=== PATIENT | female | born 1955 | race Caucasian/White ===

== ENCOUNTER → 2020-03-23 12:42 | Outpatient (REF) | payer MEDICARE, BC, SELFPAY ==
--- NOTE | 2020-03-23 13:00 | CA_ITS ---
Transthoracic Echocardiogram Patient (Last, First, Middle): Sonia Mora F Gender: Female Date of : 1955 Age: 64 Procedure Date: 03/23/2020 Procedure Type: Transthoracic Echocardiogram Location: OP Height: 167.64 cm Weight: 131.54 kg BSA: 2.34 m2 Heart Rate: bpm BP: 138 / 80 mmHg Bill Checker: Referring MD: Kumar Honeycutt MD Symptoms: Z95.4 AVR, Z95.1 CABG X3 Study Quality: Fair ECG Rhythm: Sinus Conclusions: - The left ventricular systolic function is normal. The visually estimated ejection fraction is between 55-60%. - A bioprosthetic aortic valve is present. The prosthetic aortic valve appears to be functioning normally. Findings Left Ventricle Normal left ventricular cavity size. There is mildly increased left ventricular wall thickness. The left ventricular systolic function is normal. The visually estimated ejection fraction is between 55-60%. Diastolic function is normal for age. Wall motion assessment is suboptimal but grossly no obvious abnormality noted. Right Ventricle Normal right ventricular cavity size and systolic function. Atria The left atrium is normal in size. The right atrium is normal in size. Aortic Valve A bioprosthetic aortic valve is present. The prosthetic aortic valve appears to be functioning normally. The aortic valve was not well visualized. The peak aortic velocity is 2.98 m/s with a calculated peak gradient of 36 mmHg. The mean gradient is 17 mmHg. The aortic valve area is 1.64 cm2. Stroke volume is elevated that could play a role in elevated gradients. Mitral Valve The mitral valve appears normal. There is mild mitral valve regurgitation. There is no mitral valve stenosis. Pulmonic Valve The pulmonic valve was not well visualized. Tricuspid Valve Normal tricuspid valve structure. There is trace tricuspid valve regurgitation. The pulmonary artery systolic pressure is normal. Great Vessels The aortic annulus, sinuses of valsalva, and asc aorta are normal in size. Venous The inferior vena cava is normal in size and collapses greater than 50% with inspiration. Pericardium/Pleural There is no evidence of pericardial effusion. Prior Study Comparison No significant change compared to prior study dated: 02/10/2019. Measurements 2D Linear Measurements IVSd: 1.35 0.6-0.9/0.6-1.0 cm LVIDd: 4.63 3.9-5.3/4.2-5.9 cm LVIDd Index: 1.98 2.4-3.2/2.2-3.1 cm/m2 LVIDs: 3.06 2.0-3.6 cm LVPWd: 1.35 0.7-1.1 cm Ao Root: 2.30 2.1-3.5 cm LA Diam: 4.00 2.7-3.8/3.0-4.0 cm LAIDs Index: 1.71 1.5-2.3 cm/m2 LV Mass: 306.36 67-162/88-224 g LV Mass Index: 130.92 43-95/49-115 g/m2 LVOT Diam: 2.10 3.0+(-)1.3 cm 2D Systolic Function EF 4C: 49.40 >55% EF 2C: 35.00 >55% Mitral Valve MV Pk E: 0.90 MV PK A: 1.28 MV Decel Time: 225.00 E/A: 0.70 E'Lateral: 11.90 E'Medial: 8.61 E/E' Med: 10.40 E/E' Lat: 7.50 PHT: 66.00 MVA PHT: 3.33 Decel [place]: 3.98 Aortic Valve AoV Pk Massimo: 2.98 AoV Mn Massimo: 1.89 AoV VTI: 0.73 AoV Pk Grad: 36.00 Aov Mn Grad: 17.00 KENDELL Cont.VTI: 1.64 LVOT LVOT Pk Massimo: 1.24 LVOT Mn Massimo: 0.96 LVOT VTI: 0.35 LVOT Pk Grad: 6.00 LVOT Mn Grad: 4.00 LVOT Diam: 2.10 LVOT Area: 3.46 Diastolic Function MV Pk E: 0.90 MV Pk A: 1.28 E/A: 0.70 E'Medial: 8.61 E/E' Med: 10.40 E' Laterial: 11.90 E/E' Lat: 7.50 Tricuspid Valve TR Pk Massimo: 1.94 TR Pk Grad: 15.00 RA Press: 3.00 RVSP: 15.00 Great Vessels Aorta Ao Root-2D: 2.30 2.0-3.7 cm Ao Asc: 2.90 2.1-3.4 cm Pulmonary Valve PV Pk Massimo: 1.00 Peak PV Grad: 4.00 Updated in Other Vendor System with Status of Final Kumar Honeycutt MD electronically signed on 03/26/2020 12:39:48 PM with status of Final
== END ==
LOC: HO.CARD 12:42
PROVIDERS: PCP Internal Medicine; Visit Provider Internal Medicine
DX: Z95.1 Presence of aortocoronary bypass graft (principal); Z95.4 Presence of other heart-valve replacement
CPT/HCPCS: 93306

== ENCOUNTER → 2020-04-13 12:46 | Outpatient (BNVA) | payer MEDICARE, BC, SELFPAY | PROVIDERS: PCP Internal Medicine; Referring Provider Internal Medicine; Visit Provider Internal Medicine | DX: Z13.89 Encounter for screening for other disorder (principal) | CPT/HCPCS: Q3014 ==

== ENCOUNTER 2021-03-22 07:37 | Outpatient (REF) | payer MEDICARE, BC, SELFPAY ==
[2021-03-22 08:40] LABS: Basophils Absolute Auto 0.1 X10*3/uL (0.0-0.2); Basophils Percent Auto 0.4 % (0-2); Eosinophils Absolute Auto 0.3 X10*3/uL (0.0-0.4); Eosinophils Percent Auto 2.6 % (0-4); Hematocrit 46.1 % (37.0-47.0); Hemoglobin 14.6 g/dl (12.0-16.0); Imm Gran Abs Auto 0.03 X10*3/uL (0.00-0.03); Imm Gran Pct Auto 0.2 % (0.0-0.4); Lymphocytes Absolute Auto 5.3 X10*3/uL (1.2-4.9); Lymphocytes Percent Auto 44.1 % (20-40); MANUAL DIFF FLAG SCAN; Mean Corpuscular HGB Conc 31.7 g/dl (31.0-35.0); Mean Corpuscular Hemoglobin 28.9 pg (27.0-33.0); Mean Corpuscular Volume 91.1 fL (80.0-98.0); Mean Platelet Volume 11.3 fL (9.4-12.3); Neutrophils Absolute Auto 5.4 x10*3/uL (2.0-8.3); Neutrophils Percent Auto 44.7 % (45-73); Platelet Count 198 X10*3/uL (160-400); Red Blood Count 5.06 X10*6/uL (4.20-5.50); Red Cell Distribution Width 13.8 % (11.0-16.0); SCAN SMEAR FLAG 1
[2021-03-22 09:08] LABS: Alanine Aminotransferase 22 U/L (0-31); Alkaline Phosphatase 152 U/L (39-117); Anion Gap 10 (12-20); Aspartate Amino Transferase 14 U/L (5-31); Bilirubin Total 0.3 mg/dL (0.0-1.0); Blood Urea Nitrogen 13 mg/dL (9-16); Calcium 8.9 mg/dL (8.4-10.2); Carbon Dioxide 29 mmol/L (22-29); Chloride 104 mmol/L (96-108); Cholesterol 201 mg/dL; Estimated Glomerular Filt Rate > 60; Glucose Fasting 123 mg/dL (60-99); HDL Cholesterol 58 mg/dL; LDL Cholesterol Calculated 114 mg/dl; Potassium 4.4 mmol/L (3.3-5.1); Sodium 139 mmol/L (135-145); Total Protein 7.1 g/dL (6.5-8.0); Triglycerides 146 mg/dL
[2021-03-22 10:10] LABS: SLIDE REVIEW VERIFIED
[2021-03-24 23:41] LABS: Phenytoin, Free/Unbound 0.9 mg/L (1.0-2.0)
[2021-03-28 12:16] LABS: Vitamin D 25-OH, D2 <4 ng/mL; Vitamin D 25-OH, D3 7 ng/mL; Vitamin D 25-OH, Total 7 ng/mL (30-100)
== END 2021-03-22 07:38 | disposition home or self-care (01) ==
LOC: HO.LAB 07:37
PROVIDERS: PCP Internal Medicine; Visit Provider Internal Medicine
DX: R56.9 Unspecified convulsions (principal); E55.9 Vitamin D deficiency, unspecified; D64.9 Anemia, unspecified; E78.5 Hyperlipidemia, unspecified; I48.0 Paroxysmal atrial fibrillation
CPT/HCPCS: 36415; 80053; 80061; 80186; 82306; 85025

== ENCOUNTER → 2021-05-02 12:44 | Outpatient (REF) | payer MEDICARE, BC, SELFPAY ==
--- NOTE | 2021-05-02 12:47 | CA_ITS ---
Transthoracic Echocardiogram Patient (Last, First, Middle): Sonia Mora F Gender: Female Date of : 1955 Age: 65 Procedure Date: 05/02/2021 Procedure Type: Transthoracic Echocardiogram Location: OP Height: 167.64 cm Weight: 136.08 kg BSA: 2.38 m2 Heart Rate: bpm BP: 134 / 85 mmHg Drawing Box Tender: ELENA Referring MD: Kumar Honeycutt MD Pododermatologist: Jonathan Trejo MD Symptoms: Z95.3 - Presence of xenogenic heart valve Study Quality: Technically Difficult ECG Rhythm: Sinus Conclusions: - 1. Normal LV systolic function with LVEF of 55-60% with impaired relaxation with suggestion of increased LVEDP 2. Bioprosthetic aortic valve function is stable with mean gradient of 19 mm of Hg 3. Normal RVSP 4. No pericardial effusion Findings Left Ventricle Normal left ventricular size, thickness, and systolic function. The visually estimated ejection fraction is between 55-60%. Spectral Doppler is indicative of an impaired relaxation filling pattern. Elevated left ventricular end diastolic pressure. E/E prime ratio is between 8 and 15 consistent with indeterminate filling pressures. Wall Motion Rest Echo Findings The basal inferior and mid inferoseptal segments are hypokinetic. The basal inferoseptal segment is akinetic. All other scored wall segments showed normal motion. Right Ventricle Normal right ventricular cavity size and systolic function. Atria The left atrium is normal in size. Interatrial shunt cannot be excluded. The right atrium was not well visualized. Aortic Valve A bioprosthetic aortic valve is present. The peak aortic gradient is 36 mmHg.The mean gradient is 19 mmHg. There is no aortic valve regurgitation. The valve is well seated with no abnormal rocking motion. Mean gradient across the valve is about 19 mm of Hg which has not changed significantly. Calculated EOA is about 1.4 cm2. Mitral Valve There is mild anterior and moderate posterior mitral leaflet thickening. The posterior mitral leaflet has restricted mobility. There is trace mitral valve regurgitation. There is no mitral valve stenosis. Pulmonic Valve The pulmonic valve was not well visualized. Tricuspid Valve Likely normal tricuspid valve structure and function. There is trace tricuspid valve regurgitation. The right ventricular systolic pressure is normal. There is no evidence of pulmonary hypertension. Great Vessels All visible segments of the aorta are normal in size. The pulmonary artery was not well visualized. Venous The inferior vena cava is normal in size and collapses greater than 50% with inspiration. Pericardium/Pleural There is no evidence of pericardial effusion. Prior Study Comparison No significant change compared to prior study dated: 03/23/2020. Measurements 2D Linear Measurements IVSd: 1.02 0.6-0.9/0.6-1.0 cm LVIDd: 5.48 3.9-5.3/4.2-5.9 cm LVIDd Index: 2.30 2.4-3.2/2.2-3.1 cm/m2 LVIDs: 4.39 2.0-3.6 cm LVPWd: 1.03 0.7-1.1 cm Ao Root: 3.50 2.1-3.5 cm LA Diam: 4.40 2.7-3.8/3.0-4.0 cm LAIDs Index: 1.85 1.5-2.3 cm/m2 LV Mass: 272.89 67-162/88-224 g LV Mass Index: 114.66 43-95/49-115 g/m2 LVOT Diam: 2.10 3.0+(-)1.3 cm 2D Systolic Function EF 4C: 54.50 >55% EF 2C: 57.50 >55% EF BiP: 55.90 >55% Mitral Valve MV Pk E: 1.03 MV PK A: 1.33 MV Decel Time: 262.00 E/A: 0.80 E'Lateral: 11.50 E'Medial: 5.87 E/E' Med: 17.50 E/E' Lat: 9.00 PHT: 77.00 MVA PHT: 2.86 Decel [place]: 3.92 Aortic Valve AoV Pk Massimo: 3.00 AoV Mn Massimo: 2.05 AoV VTI: 0.71 AoV Pk Grad: 36.00 Aov Mn Grad: 19.00 KENDELL Cont.VTI: 1.53 LVOT LVOT Pk Massimo: 1.14 LVOT Mn Massimo: 0.89 LVOT VTI: 0.32 LVOT Pk Grad: 5.00 LVOT Mn Grad: 3.00 LVOT Diam: 2.10 LVOT Area: 3.46 Diastolic Function MV Pk E: 1.03 MV Pk A: 1.33 E/A: 0.80 E'Medial: 5.87 E/E' Med: 17.50 E' Laterial: 11.50 E/E' Lat: 9.00 Right Ventricle TAPSE (mm): 19.80 TVS' Massimo: 10.40 Tricuspid Valve TR Pk Massimo: 1.25 TR Pk Grad: 6.00 RA Press: 3.00 RVSP: 9.00 Great Vessels Aorta Ao Root-2D: 3.50 2.0-3.7 cm Updated in Other Vendor System with Status of Final Jonathan Trejo MD electronically signed on 05/02/2021 2:59:00 PM with status of Final
== END ==
LOC: HO.CARD 12:44
PROVIDERS: Visit Provider Internal Medicine
DX: I25.10 Atherosclerotic heart disease of native coronary artery without angina pectoris (principal); Z95.3 Presence of xenogenic heart valve
CPT/HCPCS: 93306

== ENCOUNTER → 2021-05-09 12:30 | Outpatient (BNVA) | payer MEDICARE, BC, SELFPAY | PROVIDERS: PCP Internal Medicine; Referring Provider Internal Medicine; Visit Provider Internal Medicine | DX: U07.1 COVID-19 (principal); I25.10 Atherosclerotic heart disease of native coronary artery without angina pectoris; I48.0 Paroxysmal atrial fibrillation; E78.5 Hyperlipidemia, unspecified; Z95.3 Presence of xenogenic heart valve | CPT/HCPCS: Q3014 ==

== ENCOUNTER 2021-12-27 12:00 | Emergency (ER) | payer MEDICARE, BC, SELFPAY ==
--- NOTE | ~2021-12-27 | XR_ITS ---
EXAMINATION: XR HIP, RIGHT CLINICAL INFORMATION: Pain. COMPARISON: None TECHNIQUE: Two views of the right hip. FINDINGS: Degenerative changes of the incidentally visualized lower lumbar spine. Bones and soft tissues otherwise appear unremarkable. No fracture appreciated. Alignment is anatomic. Hip joint space is maintained. Calcification of the visualized lower extremity arteries. XR/XR hip RT w PEL1V IMPRESSION: No acute finding.
[2021-12-27 12:07] VITALS: BP 133/110; PULSE 80; RESP 18; TEMP 36.4; O2SAT 98; BMI 48.4
[2021-12-27 12:36] LABS: Appearance Urine Cloudy; Color Urine Dark Yellow; Glucose Urine UA Negative (Negative); Leukocyte Esterase Urine Trace (Negative); Nitrite Urine Negative (Negative); PH 5.5 (5.0-8.0); Specific Gravity - Urine >= 1.030 (1.005-1.025); Urine Blood Negative (Negative); Urine Ketones Trace mg/dL (Negative); Urine Protein 30 (1+) mg/dL (Neg-Trace)
[2021-12-27 13:29] LABS: Bacteria Urine 1+ (None Seen); WBC Urine 0-5 /HPF (0-5)
--- NOTE | 2021-12-27 13:43 | ED.LOWEXIN ---
HPI - Extremity Injury (Lower) General Chief Complaint: Extremity Injury, Lower Stated Complaint: r hip and groin pain Time Seen by Provider: 12/27/21 13:43 Source: patient and family () Mode of arrival: ambulatory Limitations: no limitations History of Present Illness HPI Narrative: 66-year-old female came in for evaluation of right hip pain. Patient been having right hip pain for the past year, woke up this morning with worsening of the right hip pain, patient took 2 Tylenol this morning with no good relief of the symptoms, patient declined any fall, no injury to the right hip. Related Data Home Medications Medication Instructions Recorded Confirmed aspirin 81 mg tablet,delayed 81 mg PO DAILY 02/11/20 05/09/21 release (Adult Low Dose Aspirin) furosemide 40 mg tablet 40 mg PO .COMPLEX 02/11/20 05/09/21 Previous Rx's Medication Instructions Recorded docusate sodium 100 mg capsule 100 mg PO BID #60 caps 11/07/20 ezetimibe 10 mg tablet 10 mg PO DAILY 90 days #90 tabs 02/03/21 ergocalciferol (vitamin D2) 1,250 1,250 mcg PO QWEEK 90 days #13 caps 04/06/21 mcg (50,000 unit) capsule metoprolol tartrate 50 mg tablet 50 mg PO BID #180 tabs 10/05/21 phenytoin sodium extended 100 mg 400 mg PO DAILY 90 days #360 caps 10/05/21 capsule folic acid 1 mg tablet 1 mg PO DAILY #90 tabs 10/26/21 niacin 500 mg tablet,extended 500 mg PO DAILY #90 tabs 10/26/21 release 24 hr rosuvastatin 40 mg tablet 40 mg PO DAILY #90 tabs 10/26/21 nitrofurantoin 100 mg PO BID #14 caps 12/27/21 monohydrate/macrocrystals 100 mg capsule (Macrobid) Allergies Allergy/AdvReac Type Severity Reaction Status Date / Time No Known Allergies Allergy Verified 05/09/21 12:32 Review of Systems Review of Systems: All other systems are reviewed and are negative Constitutional: Reports as per HPI and Reports no additional constitutional complaints Eyes: Reports as per HPI and Reports no additional eye complaints Reports system reviewed and no additional complaints, except as documented Cardiovascular: Reports as per HPI and Reports no additional cardiovascular complaints Respiratory: Reports as per HPI and Reports no additional respiratory complaints Gastrointestinal: Reports as per HPI and Reports no additional gastrointestinal complaints Genitourinary: Reports no additional female genitourinary complaints Musculoskeletal: Reports no additional musculoskeletal complaints Skin/Breast: Reports system reviewed and no additional complaints, except as docu Psychiatric: Reports no additional psychiatric complaints Endocrine: Reports no additional endocrine complaints Hematologic/Lymphatic: Reports no additional hematologic/lymphatic complaints Allergic/Immunologic: Reports no additional allergic/immunologic complaints Reports system reviewed and no additional complaints, except as documented and Reports Abnormal speech present [facility] Past Medical History Medical History Atherosclerotic cardiovascular disease Cellulitis Constipation by delayed colonic transit Essential hypertension History of stroke Impaired glucose tolerance Other and unspecified hyperlipidemia PAF (paroxysmal atrial fibrillation) Pure hypercholesterolemia Seizure Surgical History History of partial hysterectomy S/P AVR (aortic valve replacement) Status post aortic valve replacement with bioprosthetic valve Status post coronary artery bypass graft Family History Family History Father Cancer Mother CVD (cardiovascular disease) Paternal Aunt Hypertension Paternal Uncle Hypertension Social History Social History Housing: House Alcohol intake: never Patient Tobacco Use Status: Former Tobacco user e-Cigarette/Vaping Use: Never Used Second Hand Smoke Exposure: No Advance Directives: No Advance Directives Information Provided: No service: No Current occupational status: unemployed Physical Exam Vital Signs: Vital Signs: Last Vital Signs Temp 97.6 F 12/27/21 12:07 Pulse 80 12/27/21 12:07 Resp 18 12/27/21 12:07 BP 133/110 H 12/27/21 12:07 Pulse Ox 98 12/27/21 12:07 O2 Del Method 12/27/21 12:07 BMI result Body Mass Index 48.4 Vital signs have been reviewed as appeared to be correct. Elevated diastolic blood pressure.. Heart rate normal. Respiration rate normal. Temperature normal. Oxygen saturation normal. Appearance: Alert. Oriented X3. No acute distress. Head: Normal external exam. Normocephalic. Atraumatic. No Reagan signs noted. No raccoon eyes noted Eyes: PERRLA. EOMI. Conjunctiva and sclera normal. Eyelids normal. ENT: TM's Normal. Pharynx normal. Uvula midline. Moist mucous membranes. No trismus noted. No drooling noted. No muffled voice noted. Neck: Normal inspection. Neck supple. FROM. No adenopathy. Thyroid Normal. No meningeal signs. No neck mass noted. CVS: Normal heart rate and rhythm. Heart sound normal. No murmurs noted. Pulses normal throughout. Respiratory: No respiratory distress. Painless inspiration. Breath sounds normal. No wheezes/rales/rhonchi noted. Chest nontender. No accessory muscle usage noted or decreased air movement noted. Abdomen: Soft and nontender. Bowel sounds normal in all 4 quadrants. No distention noted. No organomegaly noted. No visible injury noted. Back: No CVA tenderness. Full range of motion noted. Skin: Skin warm and dry. Normal skin color. Normal skin turgor. No rashes/lesions/lacerations noted. Extremities: Patient normally walk with cane, able to walk and ambulate with some tenderness in the right hip. No rash, for range of motion of the right hip, neurovascularly intact to the right lower extremities. Neuro: Oriented X 3. Cranial nerve exam: II-XII are grossly intact No motor deficit. No sensory deficit. Reflexes normal. Course Course Course Narrative: 66-year-old female right hip pain likely due to chronic arthritis. No acute injury or trauma. Will refer the patient to orthopedic for further evaluation of chronic management of chronic arthritis. Mild hematuria in the urine, will discharge the patient to follow-up with PCP and Dr. Padron clinical presentation is not likely to be kidney stone. However more history from the patient patient been having dysuria and increased urinary frequency and itching. Will treat with Macrobid patient was instructed to drink plenty of fluids. MDM - Extremity Injury (Lower) Lab Data Attestation: I reviewed the patient's lab results. Labs: Lab Results 12/27/21 Range/Units 12:22 Urine Color Dark Yellow Urine Appearance Cloudy Urine pH 5.5 (5.0-8.0) Ur Specific [place] >= 1.030 H (1.005-1.025) Urine Protein 30 (1+) H (Neg-Trace) mg/dL Urine Glucose (UA) Negative (Negative) mg/dL Urine Ketones Trace (Negative) mg/dL Urine Blood Negative (Negative) Urine Nitrite Negative (Negative) Ur Leukocyte Esterase Trace H (Negative) Urine RBC 11-20 H (0-2) /HPF Urine WBC 0-5 (0-5) /HPF Ur Squamous Epith Cells 6-10 (0-2) /HPF Urine Bacteria 1+ (None Seen) Hyaline Casts 3-5 (0-2) /LPF Imaging Data Right hip x-ray: Attestation: I personally reviewed and interpreted this imaging study as follows: Radiologist's impression: No acute finding of the right hip. Discharge Plan Discharge Clinical Impression: Arthritis of right hip, Acute UTI Patient Disposition: Home, Self-Care Instructions: Urinary Tract Infection in Women (ED), Osteoarthritis (ED) Prescriptions: New nitrofurantoin monohyd/m-cryst [Macrobid] 100 mg capsule 100 mg PO BID Qty: 14 0RF Rx Instructions: must administer with a meal/food No Action docusate sodium 100 mg capsule 100 mg PO BID Qty: 60 6RF ezetimibe 10 mg tablet 10 mg PO DAILY 90 Days Qty: 90 3RF phenytoin sodium extended 100 mg capsule 400 mg PO DAILY 90 Days Qty: 360 3RF metoprolol tartrate 50 mg tablet 50 mg PO BID Qty: 180 3RF rosuvastatin 40 mg tablet 40 mg PO DAILY Qty: 90 2RF folic acid 1 mg tablet 1 mg PO DAILY Qty: 90 1RF niacin 500 mg tablet extended release 24 hr 500 mg PO DAILY Qty: 90 1RF furosemide 40 mg tablet 40 mg PO .COMPLEX Rx Instructions: 40 mg PO once a week; aspirin [Adult Low Dose Aspirin] 81 mg tablet,delayed release (DR/EC) 81 mg PO DAILY ergocalciferol (vitamin D2) 1,250 mcg (50,000 unit) capsule 1,250 mcg PO QWEEK 90 Days Qty: 13 2RF Referrals: Yin Nagel MD [Primary Care Provider] -
== END 2021-12-27 14:24 | disposition home or self-care (01) ==
PROVIDERS: Emergency Provider Emergency Medicine; PCP Internal Medicine
DX: M25.551 Pain in right hip (principal); Z79.899 Other long term (current) drug therapy; Z87.891 Personal history of nicotine dependence
CPT/HCPCS: 73502; 81001; 99282; 99283

== ENCOUNTER → 2022-01-11 13:13 | Outpatient (BNVA) | payer MEDICARE, BC, SELFPAY | PROVIDERS: PCP Internal Medicine; Referring Provider Internal Medicine; Visit Provider Internal Medicine | DX: I25.10 Atherosclerotic heart disease of native coronary artery without angina pectoris (principal); I10 Essential (primary) hypertension; E78.5 Hyperlipidemia, unspecified; Z95.3 Presence of xenogenic heart valve; Z79.82 Long term (current) use of aspirin; Z79.899 Other long term (current) drug therapy | CPT/HCPCS: 93005; 99212 ==

== ENCOUNTER 2022-01-30 08:30 | Outpatient (REF) | payer MEDICARE, BC, SELFPAY ==
[2022-01-30 08:48] LABS: Basophils Percent Auto 0.4 % (0-2); Eosinophils Absolute Auto 0.3 X10*3/uL (0.0-0.4); Eosinophils Percent Auto 3.2 % (0-4); Hematocrit 47.6 % (37.0-47.0); Hemoglobin 14.9 g/dl (12.0-16.0); Imm Gran Abs Auto 0.02 X10*3/uL (0.00-0.03); Imm Gran Pct Auto 0.2 % (0.0-0.4); Lymphocytes Absolute Auto 5.3 X10*3/uL (1.2-4.9); Lymphocytes Percent Auto 50.2 % (20-40); MANUAL DIFF FLAG SCAN; Mean Corpuscular HGB Conc 31.3 g/dl (31.0-35.0); Mean Corpuscular Hemoglobin 28.8 pg (27.0-33.0); Mean Corpuscular Volume 92.1 fL (80.0-98.0); Mean Platelet Volume 10.9 fL (9.4-12.3); Monocytes Percent Auto 9.1 % (2-11); Neutrophils Absolute Auto 3.9 x10*3/uL (2.0-8.3); Neutrophils Percent Auto 36.9 % (45-73); Platelet Count 190 X10*3/uL (160-400); Red Blood Count 5.17 X10*6/uL (4.20-5.50); Red Cell Distribution Width 14.1 % (11.0-16.0); SCAN SMEAR FLAG 1; White Blood Count 10.5 X10*3/uL (4.8-10.8)
[2022-01-30 09:06] LABS: SLIDE REVIEW VERIFIED
[2022-01-30 10:37] LABS: Phenytoin Dilantin 8.8 ug/mL (10.0-20.0)
[2022-01-30 10:46] LABS: Alanine Aminotransferase 18 U/L (0-31); Alkaline Phosphatase 135 U/L (39-117); Anion Gap 16 (12-20); Aspartate Amino Transferase 16 U/L (5-31); Bilirubin Total 0.3 mg/dL (0.0-1.0); Blood Urea Nitrogen 18 mg/dL (9-16); Carbon Dioxide 26 mmol/L (22-29); Chloride 105 mmol/L (96-108); Cholesterol 208 mg/dL; Estimated Glomerular Filt Rate > 60; Glucose Fasting 122 mg/dL (60-99); HDL Cholesterol 63 mg/dL; LDL Cholesterol Calculated 117 mg/dl; Potassium 4.1 mmol/L (3.3-5.1); Sodium 143 mmol/L (135-145); Total Protein 7.3 g/dL (6.5-8.0); Triglycerides 144 mg/dL
[2022-02-03 14:31] LABS: Vitamin D 25-OH, D2 13 ng/mL; Vitamin D 25-OH, D3 10 ng/mL; Vitamin D 25-OH, Total 23 ng/mL (30-100)
== END 2022-01-30 08:31 | disposition home or self-care (01) ==
LOC: HO.LAB 08:30
PROVIDERS: PCP Internal Medicine; Visit Provider Internal Medicine
DX: I48.0 Paroxysmal atrial fibrillation (principal); E55.9 Vitamin D deficiency, unspecified; D64.9 Anemia, unspecified; R56.9 Unspecified convulsions; E78.5 Hyperlipidemia, unspecified
CPT/HCPCS: 36415; 80053; 80061; 80185; 82306; 85025

== ENCOUNTER → 2023-11-01 10:05 | Outpatient (REF) | payer MEDICARE, BC, SELFPAY ==
--- NOTE | 2023-11-01 10:20 | CA_ITS ---
Transthoracic Echocardiogram Amended Patient (Last, First, Middle): Sonia Mora F Gender: Female Date of : 1955 Age: 68 Procedure Date: 11/01/2023 Procedure Type: Transthoracic Echocardiogram Location: OP Height: 167. cm Weight: 136.08 kg BSA: 2.37 m2 Heart Rate: bpm BP: 142 / 90 mmHg Theatre Arts Professor: DIEGO Heller MD: Kumar Honeycutt MD [employer] Drill Operator: Jonathan Trejo MD Symptoms: Z95.3 - Presence of xenogenic heart valve Study Quality: Adequate ECG Rhythm: Sinus Conclusions: - 1. Normal LV systolic function with LVEF of 60 65% with mild LVH with impaired relaxation filling pattern 2. Bioprosthetic aortic valve in place with increased gradient at 15 mmHg although gradients are stable 3. Normal RV systolic pressure 4. Mildly dilated ascending aorta at 3.7 cm 5. No gross pericardial effusion Findings Left Ventricle Normal left ventricular size and systolic function. There is mildly increased left ventricular wall thickness. The visually estimated ejection fraction is between 60-65%. Spectral Doppler is indicative of an impaired relaxation filling pattern. E/E prime ratio is between 8 and 15 consistent with indeterminate filling pressures. Right Ventricle Normal right ventricular cavity size and systolic function. Atria The left atrium is likely dilated. Interatrial shunt cannot be excluded. The right atrium is normal in size. Aortic Valve A bioprosthetic aortic valve is present. The mean gradient is 15 mmHg. There is no aortic valve regurgitation. Increased gradient across the bioprosthetic valve at 15 mmHg but I stable compared to prior study, could represent patient prosthesis mismatch. the valve is well seated without abnormal rocking motion Mitral Valve There is mild anterior and moderate posterior mitral leaflet thickening. The posterior mitral leaflet has restricted mobility. There is trace mitral valve regurgitation. There is no mitral valve stenosis. Pulmonic Valve The pulmonic valve was not well visualized. Tricuspid Valve Likely normal tricuspid valve structure and function. There is mild tricuspid valve regurgitation. The right ventricular systolic pressure is normal. The right ventricular systolic pressure is 29 mmHg. Normal right atrial pressure. There is no evidence of pulmonary hypertension. Great Vessels The aorta was not well visualized. The pulmonary artery was not well visualized. There is mild dilatation of the ascending aorta measuring 3.70 cm. Venous The inferior vena cava is normal in size and collapses greater than 50% with inspiration. Pericardium/Pleural There is no evidence of pericardial effusion. Prior Study Comparison No significant change compared to prior study dated: 05/02/2021. Measurements 2D Linear Measurements IVSd: 1.15 0.6-0.9/0.6-1.0 cm LVIDd: 4.83 3.9-5.3/4.2-5.9 cm LVIDd Index: 2.04 2.4-3.2/2.2-3.1 cm/m2 LVIDs: 2.59 2.0-3.6 cm LVPWd: 1.23 0.7-1.1 cm LA Diam: 4.10 2.7-3.8/3.0-4.0 cm LAIDs Index: 1.73 1.5-2.3 cm/m2 LV Mass: 272.61 67-162/88-224 g LV Mass Index: 115.03 43-95/49-115 g/m2 LVOT Diam: 2.10 3.0+(-)1.3 cm 2D Volumes LA Vol: 27.10 2D Systolic Function EF 4C: 59.60 >55% EF 2C: 61.30 >55% EF BiP: 60.70 >55% Mitral Valve MV Pk E: 0.94 MV PK A: 1.26 MV Decel Time: 281.00 E/A: 0.70 E'Lateral: 7.83 E'Medial: 5.22 E/E' Med: 18.00 E/E' Lat: 12.00 PHT: 82.00 MVA PHT: 2.68 Decel [place]: 3.35 Aortic Valve AoV Pk Massimo: 2.65 AoV Mn Massimo: 1.84 AoV VTI: 0.68 AoV Pk Grad: 28.00 Aov Mn Grad: 15.00 KENDELL Cont.VTI: 1.47 LVOT LVOT Pk Massimo: 1.09 LVOT Mn Massimo: 0.78 LVOT VTI: 0.29 LVOT Pk Grad: 5.00 LVOT Mn Grad: 3.00 LVOT Diam: 2.10 LVOT Area: 3.46 Diastolic Function MV Pk E: 0.94 MV Pk A: 1.26 E/A: 0.70 E'Medial: 5.22 E/E' Med: 18.00 E' Laterial: 7.83 E/E' Lat: 12.00 Right Ventricle TAPSE (mm): 20.90 TVS' Massimo: 9.79 Tricuspid Valve TR Pk Massimo: 2.55 TR Pk Grad: 26.00 RA Press: 3.00 RVSP: 29.00 Great Vessels Aorta Sinus of Valsalva: 3.30 2.0-3.5 cm Ao Asc: 3.70 2.1-3.4 cm Pulmonary Valve PV Pk Massimo: 0.84 Peak PV Grad: 3.00 Updated in Other Vendor System with Status of Final Jonathan Trejo MD electronically signed on 11/01/2023 3:41:39 PM with status of Final
== END ==
LOC: HO.CARD 10:05
PROVIDERS: PCP Internal Medicine; Visit Provider Internal Medicine
DX: I25.10 Atherosclerotic heart disease of native coronary artery without angina pectoris (principal); I48.0 Paroxysmal atrial fibrillation; Z95.3 Presence of xenogenic heart valve
CPT/HCPCS: 93306

== ENCOUNTER → 2023-11-01 10:20 | Outpatient (BNV) | payer MEDICARE, BC, SELFPAY | PROVIDERS: PCP Internal Medicine; Visit Provider Internal Medicine Cardiovascular Disease | DX: Z95.3 Presence of xenogenic heart valve (principal) | CPT/HCPCS: 93306 ==

== ENCOUNTER 2023-11-13 10:43 | Outpatient (AMB) | payer MEDICARE, BC, SELFPAY ==
--- NOTE | 2023-11-13 10:57 | MHC.PC.OV ---
Vital Signs 11/13/23 11:00 Height 5 ft 6 in BMI Reason not done Patient refused/unable BP 160/84 H Blood Pressure Location Lt brachial Position Sitting Pulse 78 Pulse Source Pulse Oximeter Pulse Oximetry (%) 95 Oxygen Delivery Method Room Air Intake Visit Reasons: Annual exam Loan Examiner Required: No Accompanied by: Self / Same As Patient Allergies No Known Allergies Allergy (Verified 11/13/23 11:02) Medication List - Last Reconciled 11/13/23 by Yin Mancia MD amlodipine TAKE 1 TABLET BY MOUTH EVERY DAY aspirin (Adult Low Dose Aspirin) 81 mg PO DAILY cholecalciferol (vitamin D3) 25 mcg PO DAILY 90 days docusate sodium 100 mg PO BID doxycycline hyclate 100 mg PO BID 10 days ezetimibe 10 mg PO DAILY 90 days folic acid 1 mg PO DAILY furosemide 40 mg PO once a week; 90 days metoprolol tartrate 50 mg PO BID niacin ER 500 mg PO DAILY phenytoin sodium extended 400 mg (4 x 100 mg) PO DAILY 90 days rosuvastatin 40 mg PO DAILY Tobacco use date assessed: 11/13/23 Fall risk assessment: No Falls in past year Last assessed Fall Risk: 11/13/23 Dental Screening Dental Screen Date: 11/13/23 Did you have a dental visit in the last 12 months?: No Did you have a dental problem in the last 6 months where you did not have access to dental care?: No Was dental information given to patient?: Patient declined HPI HPI Comments History of Present Illness Details This is a 68-year-old female with seizures and paroxysmal atrial fibrillation that comes for her physical exam. Last mammogram was over a year ago. Mammogram will be order as well as DEXA scan. Declines colonoscopy or any other type of colon cancer screening. Has not had a seizure since the and does not follow with Neurology. Atrial fibrillation is follow by cardiology. She refused to be weight but she is obese and was advised to do diet and exercise as tolerated to reach BMI goal less than 30. Blood pressure is elevated and amlodipine will be increased. [facility] Medical History (Updated 11/13/23 @ 11:30 by Yin Mancia MD) Dysuria Other and unspecified hyperlipidemia PAF (paroxysmal atrial fibrillation) Atherosclerotic cardiovascular disease Cellulitis Constipation by delayed colonic transit Seizure Impaired glucose tolerance Pure hypercholesterolemia Essential hypertension History of stroke Surgical History Status post coronary artery bypass graft Status post aortic valve replacement with bioprosthetic valve S/P AVR (aortic valve replacement) History of partial hysterectomy Family History Father Cancer Mother CVD (cardiovascular disease) Paternal Aunt Hypertension Paternal Uncle Hypertension Social History Housing: House Alcohol intake: never Patient Tobacco Use Status: Former Tobacco user e-Cigarette/Vaping Use: Never Used Second Hand Smoke Exposure: No service: No Current occupational status: unemployed Cognitive needs: No Hearing needs: No Vision needs: Yes Questionnaire PHQ-9 Over the last 2 weeks, how often have you been bothered by any of the following problems? 1. Little interest or pleasure in doing things: not at all 2. Feeling down, depressed, or hopeless: not at all 3. Trouble falling or staying asleep, or sleeping too much: not at all 4. Feeling tired or having little energy: not at all 5. Poor appetite or overeating: not at all 6. Feeling bad about yourself - or that you are a failure or have let yourself or your family down: not at all 7. Trouble concentrating on things, such as reading the newspaper or watching television: not at all 8. Moving or speaking so slowly that other people could have noticed. Or the opposite - being so fidgety or restless that you have been moving around a lot more than usual: not at all 9. Thoughts that you would be better off or of hurting yourself in some way: not at all Total score: 0 Depression Screening Interpretation: Negative Depression Screening Done: Yes 02940 - PHQ-9 Billing: Yes Source: Developed by Drs. Jun Jean, Sumi Oviedo, Chris Farrell and colleagues, with an educational lola from [employer] Thrive Questionnaire Date Thrive assessed: 11/13/23 I am a: Patient What is your living situation today?: I have a steady place to live Within the past 12 months, did the food you bought not last and you didn't have the money to get more?: Never true Within the past 12 months, did you worry whether your food would run out before you got money to buy more?: Never true Do you have trouble paying for medicines?: No Do you have trouble getting transportation to medical appointments?: No Do you have trouble paying your heating and electricity bill?: No Do you have trouble taking care of your child, family member or friend?: No Do you have trouble with day-to-day activities such as bathing, preparing meals, shopping, managing finances, etc.?: No Are you currently unemployed and looking for a job?: No Are you interested in more education?: No Please select the resources that you would like help with: None Currently or been in a relationship where the following occur: No concerns reported THRIVE Score: 0 AUDIT C Alcohol Use Questionnaire (AUDIT-C) 1. How often do you have a drink containing alcohol?: Never 3. How often do you have six or more drinks on one occasion?: Never Total Score: 0 Score Reviewed/Action Taken: No ZIYAD-7 AMB Questionnaire ZIYAD-7 Date ZIYAD - 7 assessed: 11/13/23 Feeling nervous, anxious, or on edge: 0 = Not at all Not being able to stop or control worryin = Not at all Worrying too much about different things: 0 = Not at all Trouble relaxin = Not at all Being so restless that it is hard to sit still: 0 = Not at all Becoming easily annoyed or irritable: 0 = Not at all Feeling afraid as if something awful might happen: 0 = Not at all Total ZIYAD-7 score (0-4 normal; 5-9 mild; 10-14 moderate; 15-21 severe): 0 Source: Developed by Drs. Jun Jean, Sumi Oviedo, Chris Farrell and colleagues, with an educational lola from [employer] ZIYAD-7 Assessment Billing ZIYAD-7 Assessment Tool: ZIYAD-7 Assessment 42101 Review of Systems Const All systems reviewed & are unremarkable except as noted in HPI and below Card Denies chest pain at rest, Denies chest pain with activity, Denies edema, Denies irregular heart rhythm, Denies claudication, Denies dyspnea, Denies dyspnea on exertion, Denies orthopnea, Denies paroxysmal nocturnal dyspnea and Denies slow heart rate Resp Denies cough, Denies dyspnea and Denies dyspnea on exertion GI Denies abdominal pain, Denies change in bowel habits, Denies excessive flatus, Denies nausea and Denies vomiting Denies urinary incontinence, Denies urinary hesitancy and Denies urinary urgency Musc Denies atrophy, Denies deformity and Denies limited range of motion Skin/Breast Denies bleeding lesions, Denies changing lesions and Denies rash Physical exam (Primary Care) Vital Signs: Last Vital Signs Pulse 78 11/13/23 11:00 BP 160/84 H 11/13/23 11:00 Pulse Ox 95 11/13/23 11:00 Oxygen Delivery Method Room Air 11/13/23 11:00 Tobacco/Smoking Status: Tobacco use Status Tobacco use date assessed 11/13/23 11/13/23 11:01 Patient Tobacco Use Status Former Tobacco user 11/13/23 11:01 e-Cigarette/Vaping Use Never Used 11/13/23 11:01 PHQ-9: PHQ-9 Score PHQ-9: Total score 0 11/13/23 11:08 Depression Screening Interpretation: Negative Thrive Assessment: Date of Thrive Assessment Date Thrive assessed 11/13/23 11/13/23 11:02 Currently or been in a relationship where the following occur: No concerns reported Const Nutritional Appearance: obese HENMT Head: Yes normal to inspection, Yes normocephalic and Yes atraumatic Ears: external ears normal Eyes General: appearance normal, both eyes and all related structures Eyelids: Yes eyelids normal Conjunctivae: conjunctivae normal Neck Neck: Yes normal visual inspection and Yes supple Resp Effort & Inspection: normal respiratory effort Auscultation: clear to auscultation bilaterally Cardio Jugular venous distension: no JVD Rate: regular rate Rhythm: regular rhythm Heart sounds: S1 normal heart sound present and S2 normal heart sound present GI Inspection: Yes normal to inspection Palpation (GI): Soft to palpation and nontender Auscultation: normal bowel sounds Skin General skin exam: no rashes or lesions noted Neuro General: no focal motor deficits Extrem General: Yes full ROM Psych Appearance: grossly normal Immunizations pneumoc 20-david conj-dip cr(PF) 0.5 mL IM syringe Performing Provider: Yin Mancia MD [facility] Administered by: KENDAL Dan on 11/13/23 11:24 Dose Route Admin Location Dispensed Lot Number Expiration Date NDC Assistant Guest Services Manager 0.5 mL IM Left Deltoid 0.5 mL [id number] 10/04/24 [employer] App VIS Given Date VIS Provided VIS Publication Date 11/13/23 Single Vaccine 21 Eligibility Eligibility Date Funding Source Not [facility] Eligible 11/13/23 Private Assessment and Plan Assessment & Plan (1) Physical exam: Code(s): Z00.00 - Encounter for general adult medical examination without abnormal findings Plan: Repeat in a year. (2) PAF (paroxysmal atrial fibrillation): Code(s): I48.0 - Paroxysmal atrial fibrillation Plan: Continue metoprolol. Follow-up with Cardiology. (3) Seizure: Code(s): R56.9 - Unspecified convulsions Plan: Continue phenytoin. Follow-up with Cardiology. Orders: Orders Vitamin D 25-OH Total Today E55.9 - Vitamin D deficiency, unspecified Phenytoin Dilantin Today R56.9 - Unspecified convulsions MM screening mammo BI Today Z12.31 - Encounter for screening mammogram for malignant neoplasm of breast XR DEXA axial skeleton Today N95.9 - Unspecified menopausal and perimenopausal disorder Lipid Panel Today E78.5 - Hyperlipidemia, unspecified Comprehensive [place]. Panel Fast Today R56.9 - Unspecified convulsions Pneumococcal 20 Immunization Today Z23 - Encounter for immunization Medications: New amlodipine 10 mg PO DAILY 90 days 90 tabs 1RF I10 - Essential (primary) hypertension Discontinued amlodipine Discontinued Reason: Patient Completed Course TAKE 1 TABLET BY MOUTH EVERY DAY 90 tabs 3RF Review Patient declined Colonoscopy: 11/13/23 Patient declined Colon Cancer Screen Lab: 11/13/23 Coding Level of Care Code Est Pt Prev Care >65y(48887) Diagnoses Physical exam Z00.00 PAF (paroxysmal atrial fibrillation) I48.0 Seizure R56.9 Additional Codes ZIYAD-7 Assessment Billing - ZIYAD-7 Assessment Tool: ZIYAD-7 Assessment [id number] ([id number]) Time Spent (min) 30
[2023-11-13 11:00] VITALS: BP 160/84; PULSE 78; O2SAT 95
== END 2023-11-13 11:25 | disposition home or self-care (01) ==
PROVIDERS: PCP Internal Medicine; Visit Provider Internal Medicine
DX: Z00.00 Encounter for general adult medical examination without abnormal findings (principal); I48.0 Paroxysmal atrial fibrillation; R56.9 Unspecified convulsions; Z23 Encounter for immunization
CPT/HCPCS: 90471; 90677; 99397

== ENCOUNTER 2023-11-19 09:50 | Outpatient (REF) | payer MEDICARE, BC, SELFPAY ==
[2023-11-19 11:07] LABS: Phenytoin Dilantin 8.9 ug/mL (10.0-20.0)
[2023-11-19 11:18] LABS: Alanine Aminotransferase 14 U/L (0-31); Albumin Level 4.2 g/dL (3.5-5.0); Alkaline Phosphatase 131 U/L (39-117); Anion Gap 14 (12-20); Aspartate Amino Transferase 14 U/L (5-31); Bilirubin Total 0.3 mg/dL (0.0-1.0); Blood Urea Nitrogen 17 mg/dL (9-16); Calcium 9.7 mg/dL (8.4-10.2); Carbon Dioxide 30 mmol/L (22-29); Chloride 102 mmol/L (96-108); Cholesterol 214 mg/dL (<200); Estimated Glomerular Filt Rate > 60; Glucose Fasting 128 mg/dL (60-99); HDL Cholesterol 63 mg/dL (>40); LDL Cholesterol Calculated 121 mg/dL (<100); Potassium 4.1 mmol/L (3.3-5.1); Sodium 142 mmol/L (135-145); Total Protein 7.8 g/dL (6.5-8.0); Triglycerides 150 mg/dL (<150)
== END 2023-11-19 09:51 | disposition home or self-care (01) ==
LOC: HO.LAB 09:50
PROVIDERS: PCP Internal Medicine; Visit Provider Internal Medicine
DX: E55.9 Vitamin D deficiency, unspecified (principal); R56.9 Unspecified convulsions; E78.5 Hyperlipidemia, unspecified; I25.10 Atherosclerotic heart disease of native coronary artery without angina pectoris; I10 Essential (primary) hypertension; E66.01 Morbid (severe) obesity due to excess calories; Z95.3 Presence of xenogenic heart valve
CPT/HCPCS: 36415; 80053; 80061; 80185; 82306; 93005; 99212

== ENCOUNTER 2023-11-19 10:44 | Outpatient (AMB) | payer MEDICARE, BC, SELFPAY ==
--- NOTE | 2023-11-19 10:58 | A.OFFVIS_ITS ---
Vital Signs 11/19/23 11:01 Height 5 ft 6 in Weight 283 lb 15.286 oz BMI 45.8 BP 156/76 H Blood Pressure Location Lt brachial Position Sitting Pulse 77 Intake Visit Reasons: 6 mth fu after echo Assistant Professor Sculpture Required: No Accompanied by: Self / Same As Patient Allergies No Known Allergies Allergy (Verified 11/13/23 11:02) Medication List - Last Reconciled 11/19/23 by Kumar Honeycutt MD amlodipine 10 mg PO DAILY 90 days aspirin (Adult Low Dose Aspirin) 81 mg PO DAILY cholecalciferol (vitamin D3) 25 mcg PO DAILY 90 days docusate sodium 100 mg PO BID ezetimibe 10 mg PO DAILY 90 days folic acid 1 mg PO DAILY furosemide 40 mg PO once a week; 90 days metoprolol tartrate 50 mg PO BID niacin ER 500 mg PO DAILY phenytoin sodium extended 400 mg (4 x 100 mg) PO DAILY 90 days rosuvastatin 40 mg PO DAILY HPI Comments Details: Sonia returns for follow-up regarding her various cardiac issues. Last seen in 2021. To recall, she has a history of aortic valve replacement as well as coronary artery bypass surgery around 2015. She is morbidly obese and weight has just been around the same for the last few years. She is also quite sedentary and low levels of physical activity. She can do house chores and some stuff in the lawn but nothing beyond that. She has some shortness of breath which is longstanding which she blames on weight but nothing new otherwise. Absolutely no angina. With regard to diet, she states she does not follow anything and in fact eats all kinds of unhealthy foods. [facility] Medical History Dysuria Other and unspecified hyperlipidemia PAF (paroxysmal atrial fibrillation) Atherosclerotic cardiovascular disease Cellulitis Constipation by delayed colonic transit Seizure Impaired glucose tolerance Pure hypercholesterolemia Essential hypertension History of stroke Surgical History Status post coronary artery bypass graft Status post aortic valve replacement with bioprosthetic valve S/P AVR (aortic valve replacement) History of partial hysterectomy Family History Father Cancer Mother CVD (cardiovascular disease) Paternal Aunt Hypertension Paternal Uncle Hypertension Social History Housing: House Alcohol intake: never Patient Tobacco Use Status: Former Tobacco user e-Cigarette/Vaping Use: Never Used Second Hand Smoke Exposure: No service: No Current occupational status: unemployed Cognitive needs: No Hearing needs: No Vision needs: Yes Review of Systems Const Denies chills, Denies fatigue, Denies fever(s), Denies weight gain and Denies weight loss ENT Denies dizziness Card Denies chest pain, Reports leg edema, Denies lightheadedness, Denies palpitations, Denies dyspnea on exertion, Denies orthopnea and Denies other Resp Denies cough and Denies dyspnea on exertion GI Denies hematochezia and Denies change in stool character Musc Denies abnormal gait, Denies muscle weakness, Denies numbness, Denies radiating pain into limb and Denies tingling Neuro Denies abnormal gait, Denies dizziness, Denies numbness and Denies tingling Endo Denies fatigue and Denies palpitations Physical Exam Vital Signs: Last Vital Signs Pulse 77 11/19/23 11:01 BP 156/76 H 11/19/23 11:01 BMI result Body Mass Index 45.8 Const General: comfortable and no acute distress Orientation/consciousness: patient oriented x3 HEENT Other: Unremarkable Head: Yes normal to inspection Neck Neck: Yes normal visual inspection Chest Chest palpation & inspection: normal inspection of the chest Resp Auscultation: clear to auscultation bilaterally Cardio Palpation: normal PMI Heart sounds: S1 normal heart sound present, S2 normal heart sound present, no gallops, Murmur heart sound present systolic III/ and at the right sternal border and no rubs GI Palpation (GI): Soft to palpation Back/Spine/Pelvis Other: unremarkable Skin General skin exam: no rashes or lesions noted Neuro General: patient oriented x3 Extrem General: Yes normal to inspection Psych Mental Status: mental status grossly normal Office Procedures EKG Details: EKG with sinus rhythm at 77/Min; old inferior infarct; cannot exclude old anterior infarct but overall study is similar to 2021. [id number], Complete Assessment & Plan Assessment & Plan (1) Status post aortic valve replacement with bioprosthetic valve: Code(s): Z95.3 - Presence of xenogenic heart valve Category: Surgical Plan: In the most recent echocardiogram, mean gradient across aortic valve 15 mm Hg. No significant change compared to before. We can recheck in a year. Continue aspirin. Continue in fact endocarditis prophylaxis per protocol. (2) Atherosclerotic cardiovascular disease: Code(s): I25.10 - Atherosclerotic heart disease of [place] coronary artery without angina pectoris Category: Medical Plan: History of bypass. Clinically, absolutely no angina. LVEF is 60-65%. Continue current medications including aspirin, beta-blockers, statins. (3) Essential hypertension: Code(s): I10 - Essential (primary) hypertension Category: Medical Plan: It is elevated. Partly related to her weight and lifestyle, diet intake extra. Per patient, her amlodipine dose was just increased within the last few days. No further changes made today. (4) Other and unspecified hyperlipidemia: Code(s): E78.5 - Hyperlipidemia, unspecified Category: Medical Plan: She is on statins, zetia, as well as niacin. Her lipids are less than optimal but this is again related to her weight, lifestyle, dietary intake. Unclear if it ever change. She is well aware of these things. Has been discussed numerous times including today. Plan To Orders: Orders CA echo transthoracic complete 1 Year Z95.3 - Presence of xenogenic heart valve Coding Level of Care Code Est Pt Level 4 (04947) Diagnoses Status post aortic valve replacement with bioprosthetic valve Z95.3 Atherosclerotic cardiovascular disease I25.10 Essential hypertension I10 Other and unspecified hyperlipidemia E78.5 CPT Codes EKG - CPT: 78813-[id number], Complete ([id number])
[2023-11-19 11:01] VITALS: BP 156/76; PULSE 77; BMI 45.8
== END 2023-11-19 11:27 | disposition home or self-care (01) ==
PROVIDERS: PCP Internal Medicine; Visit Provider Internal Medicine
DX: Z95.3 Presence of xenogenic heart valve (principal); I25.10 Atherosclerotic heart disease of native coronary artery without angina pectoris; I10 Essential (primary) hypertension; E78.5 Hyperlipidemia, unspecified
CPT/HCPCS: 93010; 99214

== ENCOUNTER 2024-02-14 10:56 | Outpatient (REF) | payer MEDICARE, BC, SELFPAY ==
--- NOTE | ~2024-02-14 | MM_ITS ---
EXAMINATION: BONE DENSITOMETRY CLINICAL INDICATION: Unspecified menopausal and perimenopausal disorder. COMPARISON: This is the patient's baseline examination. TECHNIQUE: Using a [employer] DXA System (software version: 13.1) manufactured by [employer], dual-energy x-ray absorptiometry was performed of the lumbar spine and left hip. The images are of good technical quality. Summary results are attached. FINDINGS: LEFT FEMUR, NECK: BMD 0.832 g/cm2, Z-score -0.5, T-score -1.5, osteopenia. LEFT FEMUR, TOTAL: BMD 0.988 g/cm2, Z-score 0.5, T-score -0.2, normal. AP SPINE L1-L4: BMD 1.268 g/cm2, Z-score 1.2, T-score 0.7, normal. IDENTIFIED RISK FACTORS: Early menopause, secondary osteoporosis, anticonvulsants, hysterectomy, unilateral oophorectomy. HISTORY OF FRACTURE: None listed. MEDICATIONS: Vitamin D. MM/XR DEXA axial skeleton IMPRESSION: 1. DIAGNOSIS: Osteopenia based on the lowest T-score value of -1.5 in the femoral neck applying World Health Organization criteria. 2. 10-YEAR FRACTURE RISK PREDICTION, FRAX: Major osteoporotic fracture (clinical spine, forearm, hip or shoulder) 8.5%. Hip fracture 1.1%. 3. Treatment Recommendations: NOF guidelines recommend consideration for treatment in postmenopausal women and men age 50 and older presenting with the following: -A hip or vertebral (clinical or morphometric) fracture. -T-score less than or equal to -2.5 at the femoral neck or spine after appropriate evaluation to exclude secondary causes. -Low bone mass at the hip or spine and a 10-year fracture probability by FRAX of greater than or equal to 3% for hip fracture or greater than or equal to 20% for major osteoporotic fracture based on the [place] adapted WHO algorithm. 4. Other Recommendations: All treatment decisions require clinical judgment and consideration of individual patient factors, including patient preferences, comorbidities, previous drug use, risk factors not captured in the FRAX model (e.g. frailty, falls, vitamin D deficiency, increased bone turnover, interval significant decline in bone density) and possible under or overestimation of fracture risk by FRAX. Additional medical evaluation for secondary cause of low bone mineral density may be appropriate. FUTURE SCAN RECOMMENDATION: People with diagnosed cases of osteoporosis or at high risk for fracture should have regular bone mineral density tests. For patients eligible for Medicare, routine testing is allowed once every 2 years. The testing frequency can be increased to one year for patients who have rapidly progressing disease, those who are receiving or discontinuing medical therapy to restore bone mass, or have additional risk factors. Electronically signed by: Evon Mcgrath MD 03/04/2024 10:53 AM EDT
--- NOTE | ~2024-02-14 | MM_ITS ---
EXAMINATION: MM SCREENING DIGITAL BREAST TOMOSYNTHESIS, BILATERAL CLINICAL INFORMATION: Screening. Asymptomatic. COMPARISON: Mammography: Comparison is made with available priors TECHNIQUE: Digital breast mammography with tomosynthesis is performed in both the craniocaudal and mediolateral oblique views along with computer-aided detection (CAD). FINDINGS: There are scattered areas of fibroglandular density (ACR BI-RADS breast composition Category b). There are no significant masses, abnormal calcifications, or other abnormalities. MM/MM tomosynthesis screening BI IMPRESSION: No mammographic evidence of malignancy. ASSESSMENT: BI-RADS BI-RADS 1 - Negative RECOMMENDATION: Routine annual mammography screening. 1 year F/U This examination should not preclude the clinical evaluation of a suspicious palpable abnormality. This patient's information was entered into a reminder system with a target due date for their next mammogram. Electronically signed by: Cornelia Khan DO 02/26/2024 02:13 PM EDT
== END 2024-02-14 10:57 | disposition home or self-care (01) ==
LOC: HO.MAMMO 10:56
PROVIDERS: PCP Internal Medicine; Visit Provider Internal Medicine
DX: Z12.31 Encounter for screening mammogram for malignant neoplasm of breast (principal); Z13.820 Encounter for screening for osteoporosis; Z78.0 Asymptomatic menopausal state
CPT/HCPCS: 77063; 77067; 77080

== ENCOUNTER → 2024-02-14 11:15 | Outpatient (BNV) | payer MEDICARE, BC, SELFPAY | PROVIDERS: PCP Internal Medicine; Visit Provider Internal Medicine | DX: Z12.31 Encounter for screening mammogram for malignant neoplasm of breast (principal) | CPT/HCPCS: 77063; 77067 ==

== ENCOUNTER 2024-09-25 10:02 | Outpatient (AMB) | payer MEDICARE, BC, SELFPAY ==
--- NOTE | 2024-09-25 10:15 | A.OFFVIS_ITS ---
Vital Signs 09/25/24 10:17 Height 5 ft 6 in Weight 276 lb 0.3 oz BMI 44.5 BP 138/82 Blood Pressure Location Rt brachial Position Sitting Pulse 83 Pulse Source Monitor Intake Visit Reasons: Shortness of breath Physical Education Specialist Required: No Commutator Inspector: Commutator Inspector Present Allergies No Known Allergies Allergy (Verified 09/25/24 10:19) HPI HPI Shortness of breath: Details: The patient is a 69-year-old female presenting with worsening shortness of breath. Symptoms have developed progressively over the last month, with a noted non-productive cough occurring intermittently and tiredness. Denies chest pain, palpitations; reports left leg edema worsened by not taking the diuretic last week. Shortness of breath aggravated by stairs, relieved by sleeping upright. History includes aortic valve replacement, coronary artery bypass grafting (2016), hypertension, hyperlipidemia, and impaired fasting glucose. Ejection fraction at 60-65%, last echocardiogram indicates increased gradient at prosthetic aortic valve. PFS Medical History Dysuria Other and unspecified hyperlipidemia PAF (paroxysmal atrial fibrillation) Atherosclerotic cardiovascular disease Cellulitis Constipation by delayed colonic transit Seizure Impaired glucose tolerance Pure hypercholesterolemia Essential hypertension History of stroke Surgical History Status post coronary artery bypass graft Status post aortic valve replacement with bioprosthetic valve S/P AVR (aortic valve replacement) History of partial hysterectomy Family History Father Cancer Mother CVD (cardiovascular disease) Paternal Aunt Hypertension Paternal Uncle Hypertension Social History Housing: House Alcohol intake: never Patient Tobacco Use Status: Former Tobacco user e-Cigarette/Vaping Use: Never Used Second Hand Smoke Exposure: No service: No Current occupational status: unemployed Cognitive needs: No Hearing needs: No Vision needs: Yes Review of Systems Const All systems reviewed & are unremarkable except as noted in HPI and below ENT Denies dizziness Card Denies chest pain, Denies chest pain at rest, Denies chest pain with activity, Denies rapid heart rate, Denies pedal edema, Denies edema, Reports leg edema, Denies lightheadedness, Denies palpitations, Reports dyspnea, Reports dyspnea on exertion and Denies orthopnea Resp Denies cough, Reports dyspnea and Reports dyspnea on exertion GI Denies hematochezia and Denies change in stool character Musc Denies abnormal gait, Denies limited range of motion, Denies muscle cramps, Denies muscle weakness, Denies numbness, Denies radiating pain into limb, Denies stiffness and Denies tingling Neuro Denies abnormal gait, Denies dizziness, Denies numbness and Denies tingling Endo Denies palpitations Physical Exam Vital Signs: Last Vital Signs Pulse 83 09/25/24 10:17 BP 138/82 09/25/24 10:17 BMI result Body Mass Index 44.5 Const Other: morbid obesity General: cooperative, healthy appearing, comfortable and no acute distress Orientation/consciousness: patient oriented x3 Neck Neck: Yes normal visual inspection Resp Effort & Inspection: normal respiratory effort Auscultation: clear to auscultation bilaterally, no rales, no rhonchi and no wheezes Cardio Rate: regular rate Rhythm: regular rhythm Heart sounds: S1 normal heart sound present, S2 normal heart sound present, no gallops, Murmur heart sound present (2/6 systolic right sternal border) and no rubs Neuro General: patient oriented x3 Extrem Other: nonpitting lower leg edema bilateral, L>R Psych Appearance: grossly normal Mental Status: mental status grossly normal Speech and movement: Normal speech and movement present Office Procedures EKG Details: Today, read by me, Sinus rhythm old anterior and anteroseptal infarct, rate 83, Qtc 423ms [id number], Complete Results Reviewed Results Reviewed: - Labs: Potassium 4.1, Creatinine 0.8, LDL 121 - Echocardiogram (11/01/2023): EF 60-65%, mild LVH, impaired relaxation, prosthetic AVR with increased gradient of 15 mmHg, normal RV systolic pressure, mildly dilated ascending aorta 3.7 cm - EKG: Normal sinus rhythm with inferior Q waves extending to septal Q waves, rate 83 bpm, QTC 423 milliseconds Assessment & Plan Assessment & Plan (1) Shortness of breath: Code(s): R06.02 - Shortness of breath Category: Medical Plan: Increasing shortness of breath with exertional activities. History of AVR and coronary artery bypass grafting 2016. Last echo did show increasing gradient through aortic valve, 15 mmHg. Murmur is noted on exam. EKG done today showing normal sinus rhythm, evidence of prior inferior and anterior MIs, rate 83. Will update echocardiogram to reassess aortic valve, EF. It has been nearly 10 years since her surgery, will plan for a pharmacological nuclear stress test to evaluate for ischemia, graft patency. She does not appear fluid overloaded on exam however her morbid obesity makes this assessment more difficult. She does have some chronic leg edema and takes Lasix once weekly. Suggested she increase it to twice weekly. Cardiology follow-up once test results are known. Emergency care if ever needed for symptoms. (2) PAF (paroxysmal atrial fibrillation): Code(s): I48.0 - Paroxysmal atrial fibrillation Category: Medical Plan: History of postoperative atrial fibrillation. No known recurrent atrial fibrillation since that time. EKG today showing sinus rhythm. She continues on metoprolol. She is on aspirin. She is not on full anticoagulation. (3) Atherosclerotic cardiovascular disease: Code(s): I25.10 - Atherosclerotic heart disease of iroquois coronary artery without angina pectoris Category: Medical Plan: Coronary artery bypass grafting 2016. Nuclear stress test as above. Continue aspirin indefinitely. Continue rosuvastatin and Zetia with ideal LDL goal less than 70. Continue metoprolol and amlodipine. (4) Status post aortic valve replacement with bioprosthetic valve: Code(s): Z95.3 - Presence of xenogenic heart valve Category: Surgical Plan: Bioprosthetic AVR, last echocardiogram showing mean gradient 15 mmHg. Repeat echocardiogram ordered. (5) Essential hypertension: Code(s): I10 - Essential (primary) hypertension Category: Medical Plan: Blood pressure goal less than 130/80. Mildly elevated at 132/82. Suggested she increase diuretics to twice weekly. (6) Pure hypercholesterolemia: Code(s): E78.00 - Pure hypercholesterolemia, unspecified Category: Medical Plan: LDL goal less than 70. Labs 11/19/2023 had shown LDL 121. He reports compliance with Zetia and rosuvastatin. She is due for updated fasting lipids. Plan Time spent on chart review, documentation, interview and assessment I discussed with the patient my concerns regarding the observed increase in shortness of breath and symptoms suggestive of potential cardiopulmonary compromise. I explained the importance of evaluating her prosthetic valve through an updated echocardiogram to determine any changes in the gradient. A nuclear stress test was advised to ensure coronary artery perfusion in light of her history of bypass surgery, avoiding physical stress to prevent dyspnea exacerbation. I informed her of the benefits and rationale of pharmacologic testing, and the importance of monitoring fluid status through adjusted diuretic intake. Follow-up scheduling depends on test outcomes, and she should seek emergent care if acute breathlessness develops. The patient acknowledged understanding and agreement with the proposed management plan. Orders: Orders CA lexiscan stress w [place] Today I25.10 - Atherosclerotic heart disease of iroquois coronary artery without angina pectoris, R06.02 - Shortness of breath, Z95.3 - Presence of xenogenic heart valve B Type Natriuretic Peptide Today R06.02 - Shortness of breath NM cardiolite stress test Today I25.10 - Atherosclerotic heart disease of iroquois coronary artery without angina pectoris, R06.02 - Shortness of breath, Z95.3 - Presence of xenogenic heart valve Lipid Panel Today I25.10 - Atherosclerotic heart disease of iroquois coronary artery without angina pectoris Patient Instructions: - Schedule the echocardiogram before the November appointment. - Plan for a pharmacologic nuclear stress test soon. - Continue current medication; increase diuretic intake to twice a week. - Call if shortness of breath worsens or new symptoms occur. - Monitor leg swelling and report significant changes. Patient was informed and verbally consented to the use of an ambient scribe for clinic note documentation during this visit. Coding Level of Care Code Est Pt Level 4 (39859) Complex EM visit Add On G2211 Diagnoses Shortness of breath R06.02 PAF (paroxysmal atrial fibrillation) I48.0 Atherosclerotic cardiovascular disease I25.10 Status post aortic valve replacement with bioprosthetic valve Z95.3 Essential hypertension I10 Pure hypercholesterolemia E78.00 CPT Codes EKG - CPT: 42139-[id number], Complete ([id number]) Time Spent (min) 30
--- OUTSIDE RECORDS SUMMARY | 2024-09-25 10:16 | XMS_ITS | Clinical Summary ---
Author Organization [facility] Address [address] [place] [address] Care Team Providers Care Machine Carton Marker Name Role Phone Unavailable Primary Care Provider Unavailabl e Immunizations Immunization Administration Dates Next Due Influenza High-dose Quadriva lent Preservative Free 01/21/2020 Influenza Quadrivalent Adjuvanted 03/06/2023, Influenza injectable quadriv alent preservative free 02/07/2022,03/17/2018,02/02/2016 Influenza, seasonal, injecta ble, preservative free 02/06/2017 Influenza, trivalent, adjuvanted 01/30/2019 Pfizer Covid-19 Vaccine 12+ 01/22/2024, Pneumococcal Conjugate PCV 20 11/13/2023 Pneumococcal Polysaccharide PPSV23 04/08/2017 Tdap 01/19/2015 Social History Tobacco Use Types Packs/Day Years Used Date Smoking Tobacco: Never Assessed Comments Unknown Sex and Gender Information Value Date Recorded Sex Assigned at Female 07/18/2023 3:51 PM EDT Legal Sex Female 11:26 AM EDT Gender Identity Female 07/18/2023 3:51 PM EDT Sexual Orientation Straight 07/18/2023 3: 51 PM EDT Plan of Treatment Health Maintenance Due Date Last Done Comments CT Colonography 1955 Colonoscopy 1955 Colorectal Cancer Screening 1955 Depression Screening 1955 FIT DNA/Cologuard 1955 FIT 1955 FOBT 1955 SDOH Screening 1955 Sigmoidoscopy 1955 Alcohol/Substance Use Screening 1965 Tobacco Screening 1965 Hepatitis C Screening 1971 Mammogram 1993 Zoster Vaccines (1 of 2) 2003 Influenza Vaccine (#1) 2024 3, 02/07/2022, 02/21/2021, Additional history exists COVID-19 Vaccine ( season) 2024 01/22/2024, 07/18/2023, 07/06/2021, Additional history exists DTaP/Tdap/Td Vaccines (2 - Td or Tdap) 01/19/2025 01/19/2015 RSV Patients and Patients Aged 60 years or older (1 - 1-dose 75+ series) 2028 Pneumococcal Vaccine: 50+ Years Completed 11/13/2023, 04/08/2017 HIB Vaccines Aged Out No longer eligi ble based on patient's age to complete this topic HPV Vaccines Aged Out No longer eligi ble based on patient's age to complete this topic Hepatitis A Vaccines Aged Out No long er eligible based on patient's age to complete this topic Hepatitis B Vaccines Aged Out No long er eligible based on patient's age to complete this topic IPV Vaccines Aged Out No longer eligi ble based on patient's age to complete this topic Meningococcal B Vaccine Aged Out No l onger eligible based on patient's age to complete this topic Meningococcal Vaccine Aged Out No atul dany eligible based on patient's age to complete this topic RSV under 20 months Aged Out No longe r eligible based on patient's age to complete this topic Rotavirus Vaccines Aged Out No longer eligible based on patient's age to complete [place] [id number] [facility]
[2024-09-25 10:17] VITALS: BP 138/82; PULSE 83; BMI 44.5
== END 2024-09-25 10:56 | disposition home or self-care (01) ==
LOC: HO.HCS 10:03
PROVIDERS: PCP Internal Medicine; Visit Provider Nurse Practitioner Family
DX: R06.02 Shortness of breath (principal); I48.0 Paroxysmal atrial fibrillation; I25.10 Atherosclerotic heart disease of native coronary artery without angina pectoris; Z95.3 Presence of xenogenic heart valve; I10 Essential (primary) hypertension; E78.00 Pure hypercholesterolemia, unspecified
CPT/HCPCS: 93010; 99214; G2211

== ENCOUNTER → 2024-09-25 10:02 | Outpatient (BNVA) | payer MEDICARE, BC, SELFPAY | PROVIDERS: PCP Internal Medicine; Visit Provider Nurse Practitioner Family | DX: Z13.89 Encounter for screening for other disorder (principal) | CPT/HCPCS: 93005; 99212 ==

== ENCOUNTER → 2024-09-25 12:46 | Outpatient (REF) | payer MEDICARE, BC, SELFPAY ==
--- NOTE | 2024-09-25 12:49 | CA_ITS ---
Transthoracic Echocardiogram Patient (Last, First, Middle): Sonia Mora F Gender: Female Date of : 1955 Age: 69 Procedure Date: 09/25/2024 Procedure Type: Transthoracic Echocardiogram Location: OP Height: 167.64 cm Weight: 125.19 kg BSA: 2.29 m2 Heart Rate: bpm BP: 148 / 80 mmHg Hazardous Materials Analyst: TO Referring MD: Kmuar Honeycutt MD Symptoms: Z95.3 - Presence of xenogenic heart valve Study Quality: Fair/Contrast Conclusions: - Normal left ventricular size, thickness, systolic function, and wall motion. The visually estimated ejection fraction is between 55-60%. - Significantly elevated right atrial pressure. Moderate to severe pulmonary hypertension is present. 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 The peak aortic velocity is 3.00 m/s. The aortic valve area is 1.21 cm2. There is no aortic valve regurgitation. Findings Procedure Information Contrast agent, definity, is being given per protocol without apparent complications. Left Ventricle Normal left ventricular size, thickness, systolic function, and wall motion. The visually estimated ejection fraction is between 55-60%. There is no evidence of regional wall motion abnormalities. Abnormal diastolic function is noted. Spectral Doppler is indicative of an impaired relaxation filling pattern. E/E prime ratio is between 8 and 15 consistent with indeterminate filling pressures. Right Ventricle Normal right ventricular cavity size and systolic function. Atria The left atrium is normal in size. The right atrium is mildly dilated. 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 The peak aortic velocity is 3.00 m/s. The aortic valve area is 1.21 cm2. There is no aortic valve regurgitation. Mitral Valve The mitral valve appears normal. There is no mitral valve regurgitation. There is no mitral valve stenosis. Pulmonic Valve The pulmonic valve is likely normal. Tricuspid Valve Normal tricuspid valve structure. There is trace tricuspid valve regurgitation. The right ventricular systolic pressure is 57 mmHg. Significantly elevated right atrial pressure. Moderate to severe pulmonary hypertension is present. Great Vessels All visible segments of the aorta are normal in size. The visualized portions of the pulmonary artery and branches are normal. Venous The inferior vena cava is dilated and collapses less than 50% with inspiration. Pericardium/Pleural There is no evidence of pericardial effusion. Prior Study Comparison Changes noted compared to prior study dated: 11/01/2023. Moderate gradient across bioprosthetic AV. Mod to severe pulm hypertension. Measurements 2D Linear Measurements IVSd: 1.01 0.6-0.9/0.6-1.0 cm LVIDd: 5.11 3.9-5.3/4.2-5.9 cm LVIDd Index: 2.23 2.4-3.2/2.2-3.1 cm/m2 LVIDs: 4.07 2.0-3.6 cm LVPWd: 0.86 0.7-1.1 cm LA Diam: 4.10 2.7-3.8/3.0-4.0 cm LAIDs Index: 1.79 1.5-2.3 cm/m2 LV Mass: 214.45 67-162/88-224 g LV Mass Index: 93.64 43-95/49-115 g/m2 LVOT Diam: 2.00 3.0+(-)1.3 cm 2D Systolic Function EF 4C: 46.00 >55% Mitral Valve MV VTI: 0.28 MV Pk Massimo: 1.52 MV Mn Massimo: 0.96 MV Pk Grad: 9.00 MV Mn Grad: 4.00 MV Pk E: 0.69 MV PK A: 1.22 MV Decel Time: 133.00 E/A: 0.60 E'Lateral: 8.81 E'Medial: 4.79 E/E' Med: 14.40 E/E' Lat: 7.80 PHT: 39.00 MVA PHT: 5.64 MVA Continuity: 2.79 Decel [place]: 5.18 Aortic Valve AoV Pk Massimo: 3.00 AoV Mn Massimo: 2.23 AoV VTI: 0.64 AoV Pk Grad: 36.00 Aov Mn Grad: 22.00 KENDELL Cont.VTI: 1.21 LVOT LVOT Pk Massimo: 1.24 LVOT Mn Massimo: 0.93 LVOT VTI: 0.25 LVOT Pk Grad: 6.00 LVOT Mn Grad: 4.00 LVOT Diam: 2.00 LVOT Area: 3.14 Diastolic Function MV Pk E: 0.69 MV Pk A: 1.22 E/A: 0.60 E'Medial: 4.79 E/E' Med: 14.40 E' Laterial: 8.81 E/E' Lat: 7.80 Right Ventricle TAPSE (mm): 16.50 TVS' Massimo: 9.03 Tricuspid Valve TR Pk Massimo: 3.51 TR Pk Grad: 49.00 RA Press: 8.00 RVSP: 57.00 Great Vessels Aorta Sinus of Valsalva: 3.26 2.0-3.5 cm Ao Asc: 3.60 2.1-3.4 cm Updated in Other Vendor System with Status of Final Quang Montez MD electronically signed on 09/29/2024 12:26:31 PM with status of Final
== END ==
LOC: HO.CARD 12:46
PROVIDERS: Visit Provider Internal Medicine
DX: Z95.3 Presence of xenogenic heart valve (principal)
CPT/HCPCS: 93306; Q9957

== ENCOUNTER 2024-11-24 10:03 | Outpatient (AMB) | payer MEDICARE, BC, SELFPAY ==
--- NOTE | 2024-11-24 10:05 | A.OFFPC_ITS ---
Vital Signs 11/24/24 10:06 Height 5 ft 6 in Weight 267 lb BMI 43.1 BP 136/78 Blood Pressure Location Lt brachial Position Sitting Intake Visit Reasons: annual exam Intake Note: Patient here for an annual physical exam Access Services Representative Required: No Accompanied by: Daughter Allergies No Known Allergies Allergy (Verified 11/24/24 10:10) Medication List - Last Reconciled 11/24/24 by Yin Mancia MD amlodipine 10 mg PO DAILY 90 days aspirin (Adult Low Dose Aspirin) 81 mg PO DAILY cholecalciferol (vitamin D3) 25 mcg PO DAILY 90 days docusate sodium 100 mg PO BID ezetimibe 10 mg PO DAILY 90 days folic acid 1 mg PO DAILY furosemide 40 mg PO once a week; 90 days metoprolol tartrate 50 mg PO BID niacin ER 500 mg PO DAILY omega-3 acid ethyl esters (Lovaza) 1 cap PO DAILY 90 days phenytoin sodium extended 400 mg (4 x 100 mg) PO DAILY 90 days rosuvastatin 40 mg PO DAILY Tobacco use date assessed: 11/24/24 Fall risk assessment: 1 Fall in past year Last assessed Fall Risk: 11/24/24 Dental Screening Dental Screen Date: 11/24/24 Did you have a dental visit in the last 12 months?: No Did you have a dental problem in the last 6 months where you did not have access to dental care?: No Was dental information given to patient?: Patient declined HPI HPI Comments History of Present Illness Details The patient is a 69-year-old female presenting for a physical exam and preventative care. She has a history of osteopenia, identified during a bone density scan conducted in February, with the next DEXA scan scheduled for 2025. The patient has coronary artery disease, managed with ezetimibe and rosuvastatin, and underwent coronary artery bypass grafting in 2015. Atrial fibrillation is part of her medical history, for which she takes metoprolol twice daily, and her last cardiology evaluation showed normal sinus rhythm. She also has a seizure disorder, controlled with phenytoin since 1996, with no recent seizure activity reported. The patient has pulmonary hypertension and moderate aortic valve stenosis, as revealed by a recent echocardiogram. She is scheduled for a stress test and lipid panel blood work as part of her ongoing cardiac evaluation. She is also morbidly obese with a BMI of 43.1 and was advised to do diet and exercise to reach BMI goal less than 30. Has an acquired right foot drop and use a cane for gait stability. Will order a foot brace. She reports a trigger finger, which does not currently cause significant discomfort, and neuropathy causing burning sensations in both feet. The patient has experienced an 8-pound weight loss since September, which was noted during a cardiology visit. - Tetanus vaccination due and administer ed during the visit - Pneumonia vaccination is up to date - Bone density scan showing osteopenia, next DEXA scan scheduled for 2025 - Mammogram completed in February [facility]LY [facility] Medical History Dysuria Other and unspecified hyperlipidemia PAF (paroxysmal atrial fibrillation) Atherosclerotic cardiovascular disease Cellulitis Constipation by delayed colonic transit Seizure Impaired glucose tolerance Pure hypercholesterolemia Essential hypertension History of stroke Surgical History Status post coronary artery bypass graft Status post aortic valve replacement with bioprosthetic valve S/P AVR (aortic valve replacement) History of partial hysterectomy Family History Father Cancer Mother CVD (cardiovascular disease) Paternal Aunt Hypertension Paternal Uncle Hypertension Social History Housing: House Alcohol intake: never Patient Tobacco Use Status: Former Tobacco user Tobacco use type: Cigarette e-Cigarette/Vaping Use: Never Used Second Hand Smoke Exposure: No service: No Current occupational status: unemployed Cognitive needs: No Hearing needs: No Vision needs: Yes Questionnaire PHQ-9 Over the last 2 weeks, how often have you been bothered by any of the following problems? 1. Little interest or pleasure in doing things: not at all 2. Feeling down, depressed, or hopeless: not at all 3. Trouble falling or staying asleep, or sleeping too much: not at all 4. Feeling tired or having little energy: not at all 5. Poor appetite or overeating: not at all 6. Feeling bad about yourself - or that you are a failure or have let yourself or your family down: not at all 7. Trouble concentrating on things, such as reading the newspaper or watching television: not at all 8. Moving or speaking so slowly that other people could have noticed. Or the opposite - being so fidgety or restless that you have been moving around a lot more than usual: not at all 9. Thoughts that you would be better off or of hurting yourself in some way: not at all Total score: 0 Depression Screening Interpretation: Negative Depression Screening Done: Yes 47036 - PHQ-9 Billing: Yes Source: Developed by Drs. Jun Jean, Sumi Oviedo, Chris Farrell and colleagues, with an educational lola from [employer]. Thrive Questionnaire Date Thrive assessed: 11/24/24 I am a: Patient What is your living situation today?: I have a steady place to live Within the past 12 months, did the food you bought not last and you didn't have the money to get more?: Never true Within the past 12 months, did you worry whether your food would run out before you got money to buy more?: Never true Do you have trouble paying for medicines?: No Do you have trouble getting transportation to medical appointments?: No Do you have trouble paying your heating and electricity bill?: No Do you have trouble taking care of your child, family member or friend?: No Do you have trouble with day-to-day activities such as bathing, preparing meals, shopping, managing finances, etc.?: No Are you currently unemployed and looking for a job?: No Are you interested in more education?: No Please select the resources that you would like help with: None Currently or been in a relationship where the following occur: No concerns reported THRIVE Score: 0 AUDIT C Alcohol Use Questionnaire (AUDIT-C) 1. How often do you have a drink containing alcohol?: Never Total Score: 0 Score Reviewed/Action Taken: No ZIYAD-7 AMB Questionnaire ZIYAD-7 Date ZIYAD - 7 assessed: 11/24/24 Feeling nervous, anxious, or on edge: 0 = Not at all Not being able to stop or control worryin = Not at all Worrying too much about different things: 0 = Not at all Trouble relaxin = Not at all Being so restless that it is hard to sit still: 0 = Not at all Becoming easily annoyed or irritable: 0 = Not at all Feeling afraid as if something awful might happen: 0 = Not at all Total ZIYAD-7 score (0-4 normal; 5-9 mild; 10-14 moderate; 15-21 severe): 0 Source: Developed by Drs. Jun Jean, Sumi Oviedo, Chris Farrell and colleagues, with an educational lola from [employer]. ZIYAD-7 Assessment Billing ZIYAD-7 Assessment Tool: ZIYAD-7 Assessment 02904 Review of Systems Const All systems reviewed & are unremarkable except as noted in HPI and below Card Denies chest pain at rest, Denies chest pain with activity, Denies edema, Denies irregular heart rhythm, Denies claudication, Denies dyspnea, Denies dyspnea on exertion, Denies orthopnea, Denies paroxysmal nocturnal dyspnea and Denies slow heart rate Resp Denies cough, Denies dyspnea and Denies dyspnea on exertion GI Denies abdominal pain, Denies change in bowel habits, Denies excessive flatus, Denies nausea and Denies vomiting Denies urinary incontinence, Denies urinary hesitancy and Denies urinary urgency Neuro Denies lack of coordination Physical exam (Primary Care) Vital Signs: Last Vital Signs BP 136/78 11/24/24 10:06 BMI result Body Mass Index 43.1 BMI Assessment/Plan discussion: High BMI High, discussed plan: lifestyle, weight reduction, dietary and physical activity Tobacco/Smoking Status: Tobacco use Status Tobacco use date assessed 11/24/24 11/24/24 10:16 Patient Tobacco Use Status Former Tobacco user 11/24/24 10:15 Tobacco use type Cigarette 11/24/24 10:16 e-Cigarette/Vaping Use Never Used 11/24/24 10:15 PHQ-9: PHQ-9 Score PHQ-9: Total score 0 11/24/24 10:44 Depression Screening Interpretation: Negative Thrive Assessment: Date of Thrive Assessment Date Thrive assessed 11/24/24 11/24/24 10:15 Currently or been in a relationship where the following occur: No concerns reported HENMT Head: Yes normal to inspection, Yes normocephalic and Yes atraumatic Ears: external ears normal Eyes General: appearance normal, both eyes and all related structures Eyelids: Yes eyelids normal Conjunctivae: conjunctivae normal Neck Neck: Yes normal visual inspection and Yes supple Resp Effort & Inspection: normal respiratory effort Auscultation: clear to auscultation bilaterally Cardio Jugular venous distension: no JVD Rate: regular rate Rhythm: regular rhythm Heart sounds: S1 normal heart sound present and S2 normal heart sound present GI Inspection: Yes normal to inspection Palpation (GI): Soft to palpation and nontender Auscultation: normal bowel sounds Skin General skin exam: no rashes or lesions noted Neuro General: no focal motor deficits Extrem General: Yes full ROM Psych Appearance: grossly normal Immunizations Tenivac (PF) 5 Lf unit-2 Lf unit/0.5 mL intramuscular syringe Performing Provider: Yin Mancia MD Performing Location: [facility] Administered by: VICENTE Michaud on 11/24/24 10:44 Dose Route Admin Location Dispensed Lot Number Expiration Date NDC Resort Desk Clerk 0.5 mL IM Left Deltoid 0.5 mL [id number] 08/04/26 65009-979-06 [employer] Total Dispensed Waste 0.5 mL 0 % VIS Given Date VIS Provided VIS Publication Date 11/24/24 Single Vaccine 20 Eligibility Eligibility Date Funding Source Not [facility] Eligible 11/24/24 Private Coding Level of Care Code Est Pt Level 3 (69490) Est Pt Prev Care >65y(77526) Diagnoses Physical exam Z00.00 PAF (paroxysmal atrial fibrillation) I48.0 Morbid obesity with BMI of 40.0-44.9, adult E66.01; Z68.41 Pulmonary hypertension I27.20 Seizure R56.9 Acquired right foot drop M21.371 Additional Codes ZIYAD-7 Assessment Billing - ZIYAD-7 Assessment Tool: ZIYAD-7 Assessment 14893 ([id number]) PHQ-9 - 49048 - PHQ-9 Billing: Yes ([id number]) Time Spent (min) 35 Assessment & Plan Assessment & Plan (1) Physical exam: Code(s): Z00.00 - Encounter for general adult medical examination without abnormal findings Category: Medical (2) PAF (paroxysmal atrial fibrillation): Code(s): I48.0 - Paroxysmal atrial fibrillation Category: Medical (3) Morbid obesity with BMI of 40.0-44.9, adult: Code(s): E66.01 - Morbid (severe) obesity due to excess calories; Z68.41 - Body mass index [BMI] 40.0-44.9, adult Category: Medical (4) Pulmonary hypertension: Code(s): I27.20 - Pulmonary hypertension, unspecified Category: Medical (5) Seizure: Code(s): R56.9 - Unspecified convulsions Category: Medical (6) Acquired right foot drop: Code(s): M21.371 - Foot drop, right foot Category: Medical Plan The patient will receive a tetanus vaccination today to ensure her immunizations are up to date. For her coronary artery disease, she will continue with her current medications, including ezetimibe and rosuvastatin, and follow up with cardiology as scheduled. A stress test and lipid panel are planned to further evaluate her cardiac status. Her atrial fibrillation is managed with metoprolol, and she will maintain her current regimen. The seizure disorder remains controlled with phenytoin, and no changes are necessary at this time. For her osteopenia, she will continue with regular bone density monitoring, with the next scan scheduled for 2025. The patient is advised to consider physical therapy for her trigger finger and neuropathy if symptoms worsen. Patient was informed and verbally consented to the use of an ambient scribe for clinic note documentation during this visit. During the visit, I discussed the importance of keeping vaccinations up to date, including administering the tetanus vaccine today. We reviewed her coronary artery disease management, emphasizing the continuation of her current medications and the need for a stress test and lipid panel to assess her cardiac health further. I advised her to maintain her current regimen for atrial fibrillation and seizure disorder, as both are well-controlled. We also discussed the management of osteopenia with regular bone density scans and considered physical therapy for her trigger finger and neuropathy if symptoms become bothersome. Orders: Orders Comprehensive [place]. Panel Fast Today Z00.00 - Encounter for general adult medical examination without abnormal findings Vitamin D 25-OH Total Today E55.9 - Vitamin D deficiency, unspecified Td Immunization Today Z23 - Encounter for immunization Referrals Cologuard Test Z12.11 - Encounter for screening for malignant neoplasm of colon, Z12.12 - Encounter for screening for malignant neoplasm of rectum Medications: New [foot brace right] As directed 1 ea 0RF M21.371 - Foot drop, right foot Changed From furosemide 40 mg PO once a week; 90 days 90 tabs 2RF To furosemide 40 mg PO .twice a week 24 tabs 2RF 90 days Discontinued docusate sodium Discontinued Reason: Patient Completed Course 100 mg PO BID 60 caps 6RF Patient Instructions: - Receive the tetanus vaccination today. - Continue taking your current medications for coronary artery disease and atrial fibrillation. - Schedule and complete the stress test and lipid panel as planned. - Monitor your trigger finger and neuropathy symptoms, and consider physical therapy if they worsen.
[2024-11-24 10:06] VITALS: BP 136/78; BMI 43.1
--- OUTSIDE RECORDS SUMMARY | 2024-11-24 11:04 | XMS_ITS | Clinical Summary ---
Author Organization [employer] Address [address] [place] [address] Care Team Providers Care Mental Health Aides Teacher Name Role Phone Unavailable Primary Care Provider [...] 1993 Zoster Vaccines (1 of 2) 2003 COVID-19 Vaccine ( season) 2024 01/22/2024, 07/18/2023, 07/06/2021, Additional history exists Influenza Vaccine (#1) 2025 , 02/07/2022, 02/21/2021, Additional history exists DTaP/Tdap/Td Vaccines (2 - [...] [place] [id number] [facility]
== END 2024-11-24 10:46 | disposition home or self-care (01) ==
LOC: HO.HMCH 10:04
PROVIDERS: PCP Internal Medicine; Visit Provider Internal Medicine
DX: Z00.00 Encounter for general adult medical examination without abnormal findings (principal); I48.0 Paroxysmal atrial fibrillation; E66.01 Morbid (severe) obesity due to excess calories; Z68.41 Body mass index [BMI] 40.0-44.9, adult; I27.20 Pulmonary hypertension, unspecified; R56.9 Unspecified convulsions; M21.371 Foot drop, right foot; Z23 Encounter for immunization

== ENCOUNTER → 2024-11-24 10:03 | Outpatient (BNVA) | payer MEDICARE, BC, SELFPAY | PROVIDERS: PCP Internal Medicine; Visit Provider Internal Medicine | DX: Z00.00 Encounter for general adult medical examination without abnormal findings (principal); Z23 Encounter for immunization; I48.0 Paroxysmal atrial fibrillation; E66.01 Morbid (severe) obesity due to excess calories; Z68.41 Body mass index [BMI] 40.0-44.9, adult; I27.20 Pulmonary hypertension, unspecified; M21.371 Foot drop, right foot | CPT/HCPCS: 90471; 90714; 96127; 99212; 99397 ==

== ENCOUNTER → 2024-11-26 09:25 | Outpatient (REF) | payer MEDICARE, BC, SELFPAY ==
--- NOTE | ~2024-11-26 | NM_ITS ---
Lexiscan Myocardial perfusion study Indication: Shortness of breath to evaluate for myocardial ischemia Technique: The patient was brought in for a Lexiscan perfusion study on 11/26/2024 and was injected 0.4 mg of Lexiscan intravenously. Within a minute of this injection 40 mCi of sestamibi was given intravenously. Images were obtained using the SPECT gamma camera interlaced with the gating device. Images were obtained in supine position. Resting perfusion study was performed on 11/27/2024. Patient was administered 40 mCi of sestamibi intravenously at rest. Images were then obtained in supine position. Images obtained without without CT attenuation. Total DLP 117 mGy-cm. Images were processed with the software and compared side to side in short axis, horizontal long axis and vertical long axis views. Findings: The stress perfusion study showed nonattenuated images show large area of absent uptake of the inferior wall as well as severely reduced uptake in the chest and basal and mid inferoseptal as well as absent uptake in the inferoapical apical as well as distal inferoseptal wall. There is also mildly reduced uptake in the inferolateral wall of the LV myocardium. Attenuated corrected images show no significant changes.. The gated study shows reduced LV systolic function with calculated LVEF of 44%. LV cavity is mildly dilated in size. The gated study shows contiguous wall thickening and contraction of inferior segments. Resting study shows no significant change in perfusion pattern compared to stress perfusion study. Gating at rest reveals inferior wall motion with ejection fraction at 55%. The findings are consistent with large area of absent uptake in the inferior wall as well as the apical wall suggestive of transmural infarct with nontransmural infarct of the distal septum, inferoseptal as well as inferolateral wall of the LV myocardium without reversible changes to suggest ischemia. Clinical correlation suggested. Severe ischemia cannot be entirely ruled out. NM/NM cardiolite stress test Impression: 1. Myocardial perfusion imaging study shows large area of fixed defect of the inferior as well as apical wall suggestive of transmural infarct although severe ischemia is possibly related nontransmural fixed defect of the inferoseptal as well as inferolateral wall. 2. Gated LVEF is 44% with stress and 55% with rest 3. Transient ischemic dilatation present Nondiagnostic changes on EKG. Electronically signed by: Jonathan Trejo MD 11/27/2024 01:56 PM EDT
--- NOTE | 2024-11-26 09:28 | CA_ITS ---
Acquisition Time: 2024-11-26 09:40:27 Total Exercise Time: 00:02:00 Test Indications: i25.10 Medications: see h&p Protocol: LEXISCAN Max HR: 118 BPM 79% of Pred: 149 BPM Max BP: 132/80 mmHG Max Work Load: 1.0 METS Pharmacological stress test with Lexiscan while pt marches in her chair, with reports of SOB and feeling flushed, with isolated PVCs, with normotensive response to injection. Nondiagnostic EKG for ischemia. In recovery, pt treated with IVP Aminophylline 75 mg to reverse Lexiscan after which pt feeling back to baseline. Nuclear images pending. Test reviewe with Dr. Montez. Referred By: Zarina Banerjee Electronically Signed By: Marquez Hernandez
== END ==
LOC: HO.CARD 09:25
PROVIDERS: PCP Internal Medicine; Visit Provider Nurse Practitioner Family
DX: R06.02 Shortness of breath (principal); I25.10 Atherosclerotic heart disease of native coronary artery without angina pectoris; Z95.3 Presence of xenogenic heart valve
CPT/HCPCS: 78452; 93017; A9500; J0280; J2785

== ENCOUNTER → 2024-11-26 09:28 | Outpatient (BNV) | payer MEDICARE, BC, SELFPAY | PROVIDERS: PCP Internal Medicine | DX: I49.3 Ventricular premature depolarization (principal); R06.02 Shortness of breath | CPT/HCPCS: 78452; 93016; 93018 ==

== ENCOUNTER 2024-12-02 12:07 | Outpatient (REF) | payer MEDICARE, BC, SELFPAY ==
[2024-12-02 12:34] LABS: MANUAL DIFF FLAG NO
[2024-12-02 12:44] LABS: Hematocrit 46.9 % (37.0-47.0); Hemoglobin 14.7 g/dl (12.0-16.0); Imm Gran Abs Auto 0.02 X10*3/uL (0.00-0.03); Imm Gran Pct Auto 0.2 % (0.0-0.4); Lymphocytes Absolute Auto 3.2 X10*3/uL (1.2-4.9); Mean Corpuscular HGB Conc 31.3 g/dl (31.0-35.0); Mean Corpuscular Hemoglobin 28.1 pg (27.0-33.0); Mean Corpuscular Volume 89.7 fL (80.0-98.0); NRBC Abs Auto 0.000 X10*3/uL (0.0-0.012); NRBC Pct Auto 0.0 /100WBC (0.0-0.2); Platelet Count 188 X10*3/uL (160-400); Red Blood Count 5.23 X10*6/uL (4.20-5.50); White Blood Count 8.0 X10*3/uL (4.8-10.8)
[2024-12-02 12:50] LABS: INTERNATIONAL NORM RATIO 0.9 (0.9-1.1); Prothrombin Time 10.1 SEC (10.9-12.4)
--- OUTSIDE RECORDS SUMMARY | 2024-12-02 12:53 | XMS_ITS | Clinical Summary ---
Author Organization [employer] Address [address] [place] [address] Care Team Providers Care Salvage Mechanic Name Role Phone Unavailable Primary Care Provider [...] age to complete this topic Insurance [place] [address] [place] [id number] [facility]
[2024-12-02 13:04] LABS: Hemoglobin A1C 181.6703 umol/L; Total Hemoglobin (HGBA1C) 3886.4123 umol/L
[2024-12-02 13:12] LABS: B Type Natriuretic Peptide 91 pg/mL (<100)
[2024-12-02 13:16] LABS: Alanine Aminotransferase 19 U/L (0-31); Albumin Level 4.3 g/dL (3.5-5.0); Alkaline Phosphatase 107 U/L (39-117); Anion Gap 13 (12-20); Aspartate Amino Transferase 20 U/L (5-31); Blood Urea Nitrogen 17 mg/dL (9-16); Calcium 9.4 mg/dL (8.4-10.2); Carbon Dioxide 29 mmol/L (22-29); Chloride 105 mmol/L (96-108); Cholesterol 209 mg/dL (<200); Estimated Glomerular Filt Rate > 60; HDL Cholesterol 69 mg/dL (>40); Potassium 4.4 mmol/L (3.3-5.1); Sodium 143 mmol/L (135-145); Total Protein 7.6 g/dL (6.5-8.0); Triglycerides 115 mg/dL (<150)
== END 2024-12-02 12:08 | disposition home or self-care (01) ==
LOC: HO.LAB 12:07
PROVIDERS: Absent Provider Nurse Practitioner Family; PCP Internal Medicine; Visit Provider Internal Medicine
DX: Z00.00 Encounter for general adult medical examination without abnormal findings (principal); I25.10 Atherosclerotic heart disease of native coronary artery without angina pectoris; I35.0 Nonrheumatic aortic (valve) stenosis; R06.02 Shortness of breath; R94.39 Abnormal result of other cardiovascular function study; I27.20 Pulmonary hypertension, unspecified; E11.40 Type 2 diabetes mellitus with diabetic neuropathy, unspecified; E55.9 Vitamin D deficiency, unspecified; Z95.3 Presence of xenogenic heart valve
CPT/HCPCS: 36415; 80053; 80061; 82306; 83036; 83880; 85025; 85610

== ENCOUNTER → 2024-12-30 23:59 | Outpatient (BNV) | payer MEDICARE, BC, SELFPAY | PROVIDERS: PCP Internal Medicine; Visit Provider Internal Medicine Cardiovascular Disease | DX: I50.30 Unspecified diastolic (congestive) heart failure (principal); R93.1 Abnormal findings on diagnostic imaging of heart and coronary circulation | CPT/HCPCS: 93459; 99152 ==

== ENCOUNTER 2025-01-25 11:17 | Outpatient (AMB) | payer MEDICARE, BC, SELFPAY ==
--- NOTE | 2025-01-25 11:20 | A.OFFVIS_ITS ---
Vital Signs 01/25/25 11:25 Height 5 ft 6 in Weight 268 lb 15.423 oz BMI 43.4 BP 130/72 Blood Pressure Location Lt brachial Position Sitting Pulse 72 Pulse Source Monitor Intake Visit Reasons: Fu cardiac cath ? TAVR Intake Note: TAVR Consult High School Tutor Required: No Accompanied by: Son Allergies No Known Allergies Allergy (Verified 11/24/24 10:10) Medication List - Last Reconciled 01/25/25 by Quang Montez MD amlodipine 10 mg PO DAILY 90 days aspirin (Adult Low Dose Aspirin) 81 mg PO DAILY cholecalciferol (vitamin D3) 25 mcg PO DAILY 90 days ezetimibe 10 mg PO DAILY 90 days folic acid 1 mg PO DAILY [foot brace right As directed] furosemide 40 mg PO .twice a week 90 days metoprolol tartrate 50 mg PO BID niacin ER 500 mg PO DAILY omega-3 acid ethyl esters (Lovaza) 1 cap PO DAILY 90 days phenytoin sodium extended 400 mg (4 x 100 mg) PO DAILY 90 days rosuvastatin 40 mg PO DAILY HPI Comments Details: [age] female who is here for management of aortic valve stenosis. She underwent cardiac catheterization recently because of dyspnea on exertion. She has background history of bypass surgery and had a 23 mm magna ease bioprosthetic valve done in 2016. Cardiac catheterization showed patent grafts with no significant progression in [place] coronary disease but did show mean gradient across aortic valve of 37 mm Hg and aortic valve area 1 cm2. She had a TAVR protocol CT scan done and we had a discussion about her in the heart team meeting and was decided to proceed with transcatheter aortic valve replacement. She has dyspnea with activities which is stable. She is denying any chest discomfort or dizziness. She was accompanied by her son who was involved in the discussion. The plan about transcatheter aortic valve replacement with an Evolut FX valve was discussed with the patient and the son and the potential pros and cons discussed in detail and all questions were answered. [facility]LY [facility] Medical History Dysuria Other and unspecified hyperlipidemia PAF (paroxysmal atrial fibrillation) Atherosclerotic cardiovascular disease Cellulitis Constipation by delayed colonic transit Seizure Impaired glucose tolerance Pure hypercholesterolemia Essential hypertension History of stroke Surgical History Status post coronary artery bypass graft Status post aortic valve replacement with bioprosthetic valve S/P AVR (aortic valve replacement) History of partial hysterectomy Family History Father Cancer Mother CVD (cardiovascular disease) Paternal Aunt Hypertension Paternal Uncle Hypertension Social History Housing: House Alcohol intake: never Patient Tobacco Use Status: Former Tobacco user Tobacco use type: Cigarette e-Cigarette/Vaping Use: Never Used Second Hand Smoke Exposure: No service: No Current occupational status: unemployed Cognitive needs: No Hearing needs: No Vision needs: Yes Review of Systems Const Denies chills, Denies fatigue, Denies fever(s), Denies frequent falls, Denies weakness, Denies weight gain and Denies weight loss ENT Denies dizziness Card Denies chest pain, Denies leg edema, Denies lightheadedness, Denies palpitations, Denies dyspnea and Denies dyspnea on exertion Resp Denies cough, Denies dyspnea and Denies dyspnea on exertion GI Denies hematochezia Musc Denies abnormal gait, Denies muscle weakness, Denies numbness, Denies radiating pain into limb and Denies tingling Neuro Denies abnormal gait, Denies dizziness, Denies frequent falls, Denies numbness, Denies tingling and Denies weakness Endo Denies fatigue and Denies palpitations Physical Exam Vital Signs: Last Vital Signs Pulse 72 01/25/25 11:25 BP 130/72 01/25/25 11:25 BMI result Body Mass Index 43.4 GENERAL APPEARANCE: in no acute distress, pleasant. Obese. NECK: no carotid bruit, no jugular venous distention. SKIN: no suspicious lesions, warm and dry. HEART: Systolic murmur aortic area, regular rate and rhythm. LUNGS: clear to auscultation bilaterally. ABDOMEN: soft, nontender. EXTREMITIES: + edema. PERIPHERAL PULSES: equal. NEUROLOGIC: No gross deficits, AAO X 3 Office Procedures EKG Details: NSR 72/min, Anterior infarct, QTc 420 msec. [id number], Complete Assessment & Plan Assessment & Plan (1) Prosthetic aortic valve stenosis: Code(s): T82.857A - Stenosis of other cardiac prosthetic devices, implants and grafts, initial encounter Category: Medical Plan Pleasant 69 year female who has background history of coronary artery bypass surgery and bioprosthetic aortic valve replacement with a 23 mm magna ease in 2016. Recently had episode of dyspnea/congestive heart failure. Repeat testing was done and she was referred for cardiac catheterization. Cardiac catheterization showed patent grafts and no progression of [place] coronary disease but did show severe prosthetic valve stenosis. We had detailed discussion about her in the heart team meeting and we have decided proceed with a transcatheter aortic valve replacement with a 26 mm Evolut FX+ and cerebral embolic protection. Detailed discussion was done with the patient and her son and procedural steps, potential complications and pros and cons were discussed in detail. The patient understands the procedure then management plan and agrees to proceed. She is set up for TAVR later this week. She will continue her medications as before. Thank you for allowing me to participate in the care of your patient. Please feel free to contact me if you have any questions. Coding Level of Care Code New Pt Level 5 (25467) Diagnoses Prosthetic aortic valve stenosis T82.857A CPT Codes EKG - CPT: 03599-[id number], Complete ([id number])
[2025-01-25 11:25] VITALS: BP 130/72; PULSE 72; BMI 43.4
--- OUTSIDE RECORDS SUMMARY | 2025-01-25 13:58 | XMS_ITS | Clinical Summary ---
Author Organization [employer] Address [address] [place] [address] Care Team Providers Care Aircraft Electronics Technical Officer Name Role Phone Unavailable Primary Care Provider [...] of 2) 2003 COVID-19 Vaccine ( season) 2025 01/22/2024, 07/18/2023, 07/06/2021, Additional history exists Influenza [...] age to complete this topic Insurance [place] [address] [place] [id number] [facility]
== END 2025-01-25 12:42 | disposition home or self-care (01) ==
LOC: HO.HCS 11:18
PROVIDERS: PCP Internal Medicine; Visit Provider Internal Medicine Cardiovascular Disease
DX: T82.857A Stenosis of other cardiac prosthetic devices, implants and grafts, initial encounter (principal); R94.31 Abnormal electrocardiogram [ECG] [EKG]
CPT/HCPCS: 93010; 99214

== ENCOUNTER → 2025-01-25 11:17 | Outpatient (BNVA) | payer MEDICARE, BC, SELFPAY | PROVIDERS: PCP Internal Medicine; Visit Provider Internal Medicine Cardiovascular Disease | DX: T82.857D Stenosis of other cardiac prosthetic devices, implants and grafts, subsequent encounter (principal); R94.31 Abnormal electrocardiogram [ECG] [EKG] | CPT/HCPCS: 93005; 99212 ==

== ENCOUNTER → 2025-01-28 23:59 | Outpatient (BNV) | payer MEDICARE, BC, SELFPAY | PROVIDERS: PCP Internal Medicine; Visit Provider Internal Medicine Cardiovascular Disease | DX: I35.0 Nonrheumatic aortic (valve) stenosis (principal); Z00.6 Encounter for examination for normal comparison and control in clinical research program | CPT/HCPCS: 33361; 99152 ==

== ENCOUNTER 2025-02-10 14:26 | Outpatient (AMB) | payer MEDICARE, BC, SELFPAY ==
--- NOTE | 2025-02-10 15:02 | A.OFFVIS_ITS ---
Vital Signs 02/10/25 15:03 Height 5 ft 6 in Weight 270 lb 11.642 oz BMI 43.7 BP 130/80 Blood Pressure Location Lt brachial Position Sitting Pulse 80 Pulse Source Pulse Oximeter Intake Visit Reasons: 2wk f/up-s/p TAVR 01/25 Spiritual Counselor Required: No Accompanied by: Self / Same As Patient Allergies No Known Allergies Allergy (Verified 02/10/25 15:07) Medication List - Last Reconciled 02/10/25 by Quang Montez MD amlodipine 10 mg PO DAILY 90 days aspirin (Adult Low Dose Aspirin) 81 mg PO DAILY cholecalciferol (vitamin D3) 25 mcg PO DAILY 90 days ezetimibe 10 mg PO DAILY 90 days folic acid 1 mg PO DAILY [foot brace right As directed] furosemide 40 mg PO .twice a week 90 days metoprolol tartrate 50 mg PO BID niacin ER 500 mg PO DAILY omega-3 acid ethyl esters (Lovaza) 1 cap PO DAILY 90 days phenytoin sodium extended 400 mg (4 x 100 mg) PO DAILY 90 days rosuvastatin 40 mg PO DAILY HPI Comments Details: [age] female who is here for management of aortic valve stenosis. She underwent cardiac catheterization recently because of dyspnea on exertion. She has background history of bypass surgery and had a 23 mm magna ease bioprosthetic valve done in 2016. Cardiac catheterization showed patent grafts with no significant progression in [place] coronary disease but did show mean gradient across aortic valve of 37 mm Hg and aortic valve area 1 cm2. She had a TAVR protocol CT scan done and we had a discussion about her in the heart team meeting and was decided to proceed with transcatheter aortic valve replacement. She has dyspnea with activities which is stable. She is denying any chest discomfort or dizziness. She was accompanied by her son who was involved in the discussion. The plan about transcatheter aortic valve replacement with an Evolut FX valve was discussed with the patient and the son and the potential pros and cons discussed in detail and all questions were answered. 02/10/2025: She is here for follow-up. She is status post transcatheter aortic valve replacement (valve in valve) for severe prosthetic valve stenosis. She has done well postop and was discharged the next day. She is saying that she is feeling little more energetic but continues to be short of breath. She has been quite sedentary and has not been exercising regularly. I have advised her to start doing cardiac rehabilitation and we are referring her to cardiac rehab. [facility] Medical History (Updated 01/25/25 @ 15:12 by Quang Montez MD) Dysuria Other and unspecified hyperlipidemia PAF (paroxysmal atrial fibrillation) Atherosclerotic cardiovascular disease Cellulitis Constipation by delayed colonic transit Seizure Impaired glucose tolerance Pure hypercholesterolemia Essential hypertension History of stroke Surgical History (Updated 02/10/25 @ 15:26 by Quang Montez MD) S/P TAVR (transcatheter aortic valve replacement) Status post coronary artery bypass graft Status post aortic valve replacement with bioprosthetic valve S/P AVR (aortic valve replacement) History of partial hysterectomy Family History Father Cancer Mother CVD (cardiovascular disease) Paternal Aunt Hypertension Paternal Uncle Hypertension Social History Housing: House Alcohol intake: never Patient Tobacco Use Status: Former Tobacco user Tobacco use type: Cigarette e-Cigarette/Vaping Use: Never Used Second Hand Smoke Exposure: No service: No Current occupational status: unemployed Cognitive needs: No Hearing needs: No Vision needs: Yes Review of Systems Const Denies daytime sleepiness, Denies difficulty sleeping, Denies snoring, Denies stops breathing during sleep and Denies weakness Card Denies chest pain, Denies rapid heart rate, Denies irregular heart rhythm, Denies claudication, Denies leg edema, Denies lightheadedness, Denies palpitations, Denies dyspnea, Reports dyspnea on exertion, Denies orthopnea, Denies paroxysmal nocturnal dyspnea and Denies slow heart rate Resp Denies cough, Denies dyspnea, Reports dyspnea on exertion and Denies snoring GI Reports no additional complaints, Denies hematochezia, Denies change in stool character and Denies dyspepsia Musc Denies abnormal gait, Denies muscle weakness and Denies numbness Neuro Denies abnormal gait, Denies numbness and Denies weakness Endo Denies palpitations Physical Exam Vital Signs: Last Vital Signs Pulse 80 02/10/25 15:03 BP 130/80 02/10/25 15:03 BMI result Body Mass Index 43.7 GENERAL APPEARANCE: in no acute distress, pleasant. Obese. NECK: no carotid bruit, no jugular venous distention. SKIN: no suspicious lesions, warm and dry. HEART: Systolic murmur aortic area, regular rate and rhythm. LUNGS: clear to auscultation bilaterally. ABDOMEN: soft, nontender. EXTREMITIES: + edema. PERIPHERAL PULSES: equal. NEUROLOGIC: No gross deficits, AAO X 3 Assessment & Plan Assessment & Plan (1) S/P TAVR (transcatheter aortic valve replacement): Code(s): Z95.2 - Presence of prosthetic heart valve Category: Surgical (2) Prosthetic aortic valve stenosis: Code(s): T82.857A - Stenosis of other cardiac prosthetic devices, implants and grafts, initial encounter Category: Medical Plan Pleasant 69 year female who has background history of coronary artery bypass surgery and bioprosthetic aortic valve replacement with a 23 mm magna ease in 2016. More recently had an episode of shortness of breath which was thought to be congestive heart failure and she was referred to us for diagnostic left and right heart catheterization where severe aortic valve stenosis was noted. She subsequently underwent transcatheter aortic valve replacement with a 26 mm Evolut FX +well with cerebral embolic protection. She has done quite well with this procedure and has recovered well. Clinically not in heart failure. She is asking whether her dyspnea will improve completely. I have told her that she needs to start doing exercise and we are referring her to cardiac rehabilitation. A lot of her symptoms are related to deconditioning and slowing down and she may improve with regular exercise. She will see us back in 1 month. She will also have repeat echocardiography at that time. After that she will follow up with Dr. Honeycutt and will see us back in 1 year. She will continue her medications as before. Thank you for allowing me to participate in the care of your patient. Please feel free to contact me if you have any questions. Orders: Orders Cardiac Rehab Today Z95.2 - Presence of prosthetic heart valve, Z98.61 - Coronary angioplasty status Coding Level of Care Code Est Pt Level 4 (94335) Diagnoses S/P TAVR (transcatheter aortic valve replacement) Z95.2 Prosthetic aortic valve stenosis T82.857A
[2025-02-10 15:03] VITALS: BP 130/80; PULSE 80; BMI 43.7
== END 2025-02-10 15:26 | disposition home or self-care (01) ==
LOC: HO.HCS 14:27
PROVIDERS: PCP Internal Medicine; Visit Provider Internal Medicine Cardiovascular Disease
DX: Z95.2 Presence of prosthetic heart valve (principal); T82.857A Stenosis of other cardiac prosthetic devices, implants and grafts, initial encounter
CPT/HCPCS: 99214

== ENCOUNTER → 2025-02-10 14:26 | Outpatient (BNVA) | payer MEDICARE, BC, SELFPAY | PROVIDERS: PCP Internal Medicine; Visit Provider Internal Medicine Cardiovascular Disease | DX: I10 Essential (primary) hypertension (principal); Z95.2 Presence of prosthetic heart valve; T82.857A Stenosis of other cardiac prosthetic devices, implants and grafts, initial encounter; Z79.82 Long term (current) use of aspirin; Z87.891 Personal history of nicotine dependence; R06.02 Shortness of breath | CPT/HCPCS: 99212 ==

== ENCOUNTER → 2025-03-01 09:52 | Outpatient (REF) | payer MEDICARE, BC, SELFPAY ==
--- NOTE | 2025-03-01 09:55 | CA_ITS ---
Transthoracic Echocardiogram Amended Patient (Last, First, Middle): Sonia Mora F Gender: Female Date of : 1955 Age: 69 Procedure Date: 03/01/2025 Procedure Type: Transthoracic Echocardiogram Location: OP Height: 167.64 cm Weight: 122.47 kg BSA: 2.27 m2 Heart Rate: bpm BP: 130 / 80 mmHg Sanitor: ELENA Referring MD: Quang Montez MD Quarry Equipment Operator: Quang Montez MD Symptoms: Z95.2 - Presence of prosthetic heart valve Study Quality: Adequate ECG Rhythm: Sinus Conclusions: - The left ventricular systolic function is mildly decreased. The calculated ejection fraction is 48% by biplane method. - A bioprosthetic aortic valve is present. The prosthetic aortic valve appears to be functioning abnormally. The mean gradient is 35 mmHg. Findings Left Ventricle Mildly increased left ventricular cavity size. The left ventricular systolic function is mildly decreased. The calculated ejection fraction is 48% by biplane method. There is mild global hypokinesis. Evidence suggests grade I (mild) diastolic dysfunction. There is mild septal asymmetric hypertrophy. Right Ventricle Mildly increased right ventricular cavity size. There is low normal right ventricular systolic function. Atria Both atria are normal in size. Aortic Valve A bioprosthetic aortic valve is present. The prosthetic aortic valve appears to be functioning abnormally. The peak aortic velocity is 3.73 m/s with a calculated peak gradient of 56 mmHg. The mean gradient is 35 mmHg. The aortic valve area is 1.08 cm2. There is no aortic valve regurgitation. Mitral Valve The mitral valve appears normal. There is trace mitral valve regurgitation. There is no mitral valve stenosis. Pulmonic Valve The pulmonic valve is likely normal. Tricuspid Valve Normal tricuspid valve structure. There is trace tricuspid valve regurgitation. There is no evidence of pulmonary hypertension. Great Vessels The asc aorta is normal in size. Venous The inferior vena cava is normal in size and collapses less than 50% with inspiration. Pericardium/Pleural There is no evidence of pericardial effusion. Prior Study Comparison Changes noted compared to prior study dated: 09/25/2024. s/p [id number] TAVR. Gradients are higher than before. LV chamber enlarged. Measurements 2D Linear Measurements IVSd: 1.20 0.6-0.9/0.6-1.0 cm LVIDd: 5.74 3.9-5.3/4.2-5.9 cm LVIDd Index: 2.53 2.4-3.2/2.2-3.1 cm/m2 LVIDs: 4.25 2.0-3.6 cm LVPWd: 0.91 0.7-1.1 cm LA Diam: 4.50 2.7-3.8/3.0-4.0 cm LAIDs Index: 1.98 1.5-2.3 cm/m2 LV Mass: 306.40 67-162/88-224 g LV Mass Index: 134.98 43-95/49-115 g/m2 LVOT Diam: 2.00 3.0+(-)1.3 cm 2D Volumes LA Vol: 26.90 2D Systolic Function EF 4C: 48.60 >55% EF 2C: 52.90 >55% EF BiP: 48.10 >55% Mitral Valve MV Pk E: 0.83 MV PK A: 1.22 MV Decel Time: 208.00 E/A: 0.70 E'Lateral: 9.68 E'Medial: 5.11 E/E' Med: 16.30 E/E' Lat: 8.60 PHT: 61.00 MVA PHT: 3.61 Decel [place]: 4.01 Aortic Valve AoV Pk Massimo: 3.73 AoV Mn Massimo: 2.81 AoV VTI: 1.06 AoV Pk Grad: 56.00 Aov Mn Grad: 35.00 KENDELL Cont.VTI: 1.08 LVOT LVOT Pk Massimo: 1.40 LVOT Mn Massimo: 0.95 LVOT VTI: 0.37 LVOT Pk Grad: 8.00 LVOT Mn Grad: 4.00 LVOT Diam: 2.00 LVOT Area: 3.14 Diastolic Function MV Pk E: 0.83 MV Pk A: 1.22 E/A: 0.70 E'Medial: 5.11 E/E' Med: 16.30 E' Laterial: 9.68 E/E' Lat: 8.60 Right Ventricle TAPSE (mm): 20.60 TVS' Massimo: 9.36 Tricuspid Valve TR Pk Massimo: 2.57 TR Pk Grad: 26.00 RA Press: 8.00 RVSP: 34.00 Great Vessels Aorta Ao Asc: 3.30 2.1-3.4 cm Ao Arch: 3.00 Updated in Other Vendor System with Status of Final Kumar Honeycutt MD electronically signed on 03/05/2025 3:40:53 PM with status of Final
== END ==
LOC: HO.CARD 09:52
PROVIDERS: PCP Internal Medicine; Visit Provider Internal Medicine Cardiovascular Disease
DX: Z95.2 Presence of prosthetic heart valve (principal)
CPT/HCPCS: 93306

== ENCOUNTER → 2025-03-01 09:55 | Outpatient (BNV) | payer MEDICARE, BC, SELFPAY | PROVIDERS: PCP Internal Medicine; Visit Provider Internal Medicine | DX: I42.2 Other hypertrophic cardiomyopathy (principal); Z95.2 Presence of prosthetic heart valve | CPT/HCPCS: 93306 ==

== ENCOUNTER 2025-03-08 13:23 | Outpatient (REF) | payer MEDICARE, BC, SELFPAY ==
[2025-03-08 13:39] LABS: MANUAL DIFF FLAG NO
[2025-03-08 14:01] LABS: Hematocrit 45.0 % (37.0-47.0); Hemoglobin 14.3 g/dl (12.0-16.0); Imm Gran Abs Auto 0.02 X10*3/uL (0.00-0.03); Imm Gran Pct Auto 0.3 % (0.0-0.4); Lymphocytes Absolute Auto 2.6 X10*3/uL (1.2-4.9); Mean Corpuscular HGB Conc 31.8 g/dl (31.0-35.0); Mean Corpuscular Hemoglobin 28.7 pg (27.0-33.0); Mean Corpuscular Volume 90.4 fL (80.0-98.0); NRBC Abs Auto 0.000 X10*3/uL (0.0-0.012); NRBC Pct Auto 0.0 /100WBC (0.0-0.2); Platelet Count 159 X10*3/uL (160-400); Red Blood Count 4.98 X10*6/uL (4.20-5.50); White Blood Count 7.8 X10*3/uL (4.8-10.8)
[2025-03-08 14:08] LABS: INTERNATIONAL NORM RATIO 1.0 (0.9-1.1); Prothrombin Time 11.1 SEC (10.9-12.4)
[2025-03-08 14:35] LABS: Alanine Aminotransferase 20 U/L (0-31); Albumin Level 4.6 g/dL (3.5-5.0); Alkaline Phosphatase 117 U/L (39-117); Anion Gap 11 (12-20); Aspartate Amino Transferase 23 U/L (5-31); Blood Urea Nitrogen 18 mg/dL (9-16); Calcium 10.0 mg/dL (8.4-10.2); Carbon Dioxide 34 mmol/L (22-29); Chloride 102 mmol/L (96-108); Estimated Glomerular Filt Rate > 60; Potassium 4.0 mmol/L (3.3-5.1); Sodium 143 mmol/L (135-145); Total Protein 8.1 g/dL (6.5-8.0)
[2025-03-08 14:40] LABS: NT Pro B Type Natriuretic Pept 534.0 pg/mL (<300)
== END 2025-03-08 13:24 | disposition home or self-care (01) ==
LOC: HO.LAB 13:23
PROVIDERS: PCP Internal Medicine; Visit Provider Internal Medicine Cardiovascular Disease
DX: Z13.89 Encounter for screening for other disorder (principal)
CPT/HCPCS: 36415; 80048; 80076; 83880; 85025; 85027; 85610

== ENCOUNTER 2025-03-08 13:50 | Emergency (ER) | payer MEDICARE, BC, SELFPAY ==
--- NOTE | 2025-03-08 14:07 | ECG_ITS ---
Test Reason : sob Blood Pressure : */* mmHG Vent. Rate : 75 BPM Atrial Rate : 75 BPM P-R Int : 172 ms QRS Dur : 114 ms QT Int : 400 ms P-R-T Axes : 0 6 145 degrees QTcB Int : 446 ms Normal sinus rhythm Left ventricular hypertrophy with repolarization abnormality ( R in aVL , [place] product ) Inferior infarct , age undetermined Anteroseptal infarct , age undetermined Abnormal ECG When compared with ECG of 01-Jun-2009 07:54, No significant changes seen Referred By: Cherie Acosta Electronically Signed By: Quang Montez
[2025-03-08 14:08] VITALS: BP 151/77; PULSE 80; RESP 16; TEMP 36.9; O2SAT 92; BMI 43.4
--- NOTE | 2025-03-08 14:41 | ED.GENADULT ---
HPI - General Adult General Chief complaint: General Medical Stated complaint: sent here from gus's office for labs and echo Time Seen by Provider: 03/08/25 14:22 Source: patient, family and old records reviewed Mode of arrival: ambulatory Limitations: no limitations History of Present Illness ED Provider: GEETHA TODD narrative: 69-year-old female with past medical history of paroxysmal AFib, seizures, hyperlipidemia, CAD with CABG pulmonary hypertension, status post revision of prior aortic valve on 01/28 at [facility] with bioprosthetic valve she and family adamantly deny any blood thinner use with history of AFib. She was sent in by her dredge or barge shore hand Dr. Montez who notes echo on 03/01 had increased gradient across the aortic valve. She denies chest pain or fevers but does note some increased shortness of breath, she has no increased lower extremity edema. Her dredge or barge shore hand recommends labs admission for echo and start on Roque DAVIS complaint: Shortness of breath and abnormal echo Onset (ago): day(s) (03/01) Radiation: non-radiation Severity: mild Relieving factors: none Associated symptoms: shortness of breath Treatments prior to arrival: none Related Data Home Medications ?Medication ?Instructions ?Recorded ?Confirmed aspirin 81 mg tablet,delayed 81 mg PO DAILY 02/11/20 02/10/25 release (Adult Low Dose Aspirin) Previous Rx's ?Medication ?Instructions ?Recorded metoprolol tartrate 50 mg tablet 50 mg PO BID #180 tabs 09/09/24 rosuvastatin 40 mg tablet 40 mg PO DAILY #90 tabs 09/09/24 folic acid 1 mg tablet 1 mg PO DAILY #90 tabs 09/23/24 amlodipine 10 mg tablet 10 mg PO DAILY 90 days #90 tabs 10/02/24 cholecalciferol (vitamin D3) 25 25 mcg PO DAILY 90 days #90 caps 10/23/24 mcg (1,000 unit) capsule ezetimibe 10 mg tablet 10 mg PO DAILY 90 days #90 tabs 11/11/24 foot brace right #1 ea 11/24/24 furosemide 40 mg tablet 40 mg PO .twice a week 90 days #24 11/24/24 tabs phenytoin sodium extended 100 mg 400 mg (4 x 100 mg) PO DAILY 90 12/12/24 capsule days #360 caps niacin 500 mg tablet,extended 500 mg PO DAILY #90 tabs 12/13/24 release 24 hr omega-3 acid ethyl esters 1 gram 1 cap PO DAILY 90 days #90 caps 01/11/25 capsule (Lovaza) warfarin 5 mg tablet 5 mg PO DAILY #60 tabs 03/07/25 apixaban 5 mg tablet (Eliquis) 5 mg PO BID #60 tabs 03/08/25 levetiracetam 500 mg tablet 500 mg PO BID #60 tabs 03/08/25 (Keppra) Allergies Allergy/AdvReac Type Severity Reaction Status Date / Time No Known Allergies Allergy Verified 03/08/25 14:10 Review of Systems Review of Systems: Constitutional : No Fever, No Chills, No Fatigue ENT/Mouth : No sore throat, No Rhinorrhea Eyes: No Eye Pain, No Swelling, No Redness Cardiovascular : No Chest Pain, pos SOB, No Dyspnea on Exertion Respiratory : No Cough, No Sputum Gastrointestinal : No Nausea, No Vomiting, No Diarrhea, No abdominal Pain Genitourinary : No Dysuria, No Urinary Frequency, No Hematuria, Musculoskeletal : No joint pain, No Myalgias, No Joint Swelling Skin : No Skin Lesions, No rash Neuro : No Weakness, No Numbness, No Dizziness, no Headache Psych : No Anxiety/Panic, No Depression Heme/Lymph: No Bruising, No Bleeding,No Lymphadenopathy Endocrine : No Polyuria, No Polydipsia All other systems reviewed and are negative [facility] Past Medical History Attestation statement: The following information was validated with the patient. Source: old records reviewed Medical History Dysuria Other and unspecified hyperlipidemia PAF (paroxysmal atrial fibrillation) Atherosclerotic cardiovascular disease Cellulitis Constipation by delayed colonic transit Seizure Impaired glucose tolerance Pure hypercholesterolemia Essential hypertension History of stroke Surgical History S/P TAVR (transcatheter aortic valve replacement) Status post coronary artery bypass graft Status post aortic valve replacement with bioprosthetic valve S/P AVR (aortic valve replacement) History of partial hysterectomy Family History Family History Father Cancer Mother CVD (cardiovascular disease) Paternal Aunt Hypertension Paternal Uncle Hypertension Social History Social History (Reviewed 03/08/25 @ 14:53 by VENKATA Feliz Housing: House Alcohol intake: never Patient Tobacco Use Status: Former Tobacco user Tobacco use type: Cigarette e-Cigarette/Vaping Use: Never Used Second Hand Smoke Exposure: No Advance Directives: Yes Advance Directives Information Provided: Yes Advance Directives on File: No service: No Current occupational status: unemployed Cognitive needs: No Hearing needs: No Vision needs: Yes Physical Exam ED Vital Signs: Vital Signs - 24 hr 03/08/25 14:08 Temperature 98.4 F Pulse Rate 80 Respiratory Rate 16 Blood Pressure 151/77 H Pulse Oximetry 92 Oxygen Delivery Method Room Air BMI result Body Mass Index 43.4 Appearance: Alert. Oriented X3. No acute distress. Eyes: Pupils equal, round and reactive to light. ENT: Pharynx normal. Neck: Normal inspection. Neck supple. CVS: Normal heart rate and rhythm. Pulses normal. Loud murmur systolic heard over anterior chest Respiratory: No respiratory distress. Breath sounds normal. Abdomen: Soft and nontender. Skin: Skin warm and dry. Normal skin color. Normal skin turgor. Extremities: Trace pitting symmetric lower extremity edema. No calf ttp I do not see any splinter hemorrhages or nodes on the hands Neuro: Oriented X 3. No motor deficit. No sensory deficit. CN2-12 intact Medical Decision Making Medical Decision Making [facility] Narrative: 69-year-old female with past medical history of paroxysmal AFib, hyperlipidemia, seizures, CAD with CABG pulmonary hypertension, status post revision of prior aortic valve on 01/28 at [facility] with bioprosthetic valve who was sent in by her dredge or barge shore hand for basic labs, start of Lovenox injections, and echo given concern for worsening gradient across the TAVR. She herself has no chest pain does complain of some shortness of breath we will discuss admission with hospitalist Differential Diagnosis Differential Diagnoses: The differential diagnosis associated with the presentation includes Shortness of breath, issue post TAVR Admission/Observation Consideration of admission/observation: Escalation of care including admission/observation considered Discussed with Dr. Montez he wants the patient to be switched from phenytoin to Keppra and started on Eliquis 5 mg b.i.d. patient is agreeable to this she is stable for DC Consult Healthcare Provider Management of the patient was discussed with: Hospitalist (Will admit) and Log Processor Operator (Echo Lovenox) Lab Data [facility] Lab Attestation statement: I reviewed the patient's lab results. 03/08/25 14:39 03/08/25 14:39 Labs: Lab Results 03/08/25 03/08/25 03/08/25 Range/Units 14:39 14:39 14:39 WBC Cancelled 7.8 RBC Cancelled 4.86 Hgb Cancelled Hct MCV MCH MCHC RDW Plt Count MPV Immature Gran % (Auto) Neut % (Auto) Lymph % (Auto) [place] % (Auto) Eos % (Auto) Baso % (Auto) Lymph # (Auto) [place] # (Auto) Eos # (Auto) Baso # (Auto) Abs Immat Gran (auto) Absolute Neuts (auto) Absolute Nucleated RBC Nucleated RBC % (auto) PT (10.9-12.4) SEC INR (0.9-1.1) APTT (26.7-34.1) SEC Sodium (135-145) mmol/L Potassium (3.3-5.1) mmol/L Chloride (96-108) mmol/L Carbon Dioxide (22-29) mmol/L Anion Gap (12-20) BUN (9-16) mg/dL Creatinine (0.5-1.4) mg/dL Estim Creat Clear Calc Estimated GFR Random Glucose (60-115) mg/dL Calcium (8.4-10.2) mg/dL Total Bilirubin (0.0-1.0) mg/dL AST (5-31) U/L ALT (0-31) U/L Alkaline Phosphatase (39-117) U/L NT-Pro-B Natriuret Pep (<300) pg/mL Total Protein (6.5-8.0) g/dL Albumin (3.5-5.0) g/dL 03/08/25 03/08/25 03/08/25 Range/Units 14:39 14:39 14:39 WBC RBC Hgb 14.2 Hct Cancelled 44.2 MCV Cancelled 90.9 MCH Cancelled MCHC RDW Plt Count MPV Immature Gran % (Auto) Neut % (Auto) Lymph % (Auto) [place] % (Auto) Eos % (Auto) Baso % (Auto) Lymph # (Auto) [place] # (Auto) Eos # (Auto) Baso # (Auto) Abs Immat Gran (auto) Absolute Neuts (auto) Absolute Nucleated RBC Nucleated RBC % (auto) PT (10.9-12.4) SEC INR (0.9-1.1) APTT (26.7-34.1) SEC Sodium (135-145) mmol/L Potassium (3.3-5.1) mmol/L Chloride (96-108) mmol/L Carbon Dioxide (22-29) mmol/L Anion Gap (12-20) BUN (9-16) mg/dL Creatinine (0.5-1.4) mg/dL Estim Creat Clear Calc Estimated GFR Random Glucose (60-115) mg/dL Calcium (8.4-10.2) mg/dL Total Bilirubin (0.0-1.0) mg/dL AST (5-31) U/L ALT (0-31) U/L Alkaline Phosphatase (39-117) U/L NT-Pro-B Natriuret Pep (<300) pg/mL Total Protein (6.5-8.0) g/dL Albumin (3.5-5.0) g/dL 03/08/25 03/08/25 03/08/25 Range/Units 14:39 14:39 14:39 WBC RBC Hgb Hct MCV MCH 29.2 MCHC Cancelled 32.1 RDW Cancelled 14.2 Plt Count Cancelled MPV Immature Gran % (Auto) Neut % (Auto) Lymph % (Auto) [place] % (Auto) Eos % (Auto) Baso % (Auto) Lymph # (Auto) [place] # (Auto) Eos # (Auto) Baso # (Auto) Abs Immat Gran (auto) Absolute Neuts (auto) Absolute Nucleated RBC Nucleated RBC % (auto) PT (10.9-12.4) SEC INR (0.9-1.1) APTT (26.7-34.1) SEC Sodium (135-145) mmol/L Potassium (3.3-5.1) mmol/L Chloride (96-108) mmol/L Carbon Dioxide (22-29) mmol/L Anion Gap (12-20) BUN (9-16) mg/dL Creatinine (0.5-1.4) mg/dL Estim Creat Clear Calc Estimated GFR Random Glucose (60-115) mg/dL Calcium (8.4-10.2) mg/dL Total Bilirubin (0.0-1.0) mg/dL AST (5-31) U/L ALT (0-31) U/L Alkaline Phosphatase (39-117) U/L NT-Pro-B Natriuret Pep (<300) pg/mL Total Protein (6.5-8.0) g/dL Albumin (3.5-5.0) g/dL 03/08/25 03/08/25 03/08/25 Range/Units 14:39 14:39 14:39 WBC RBC Hgb Hct MCV MCH MCHC RDW Plt Count 147 L MPV Cancelled 10.4 Immature Gran % (Auto) Cancelled 0.1 Neut % (Auto) Cancelled Lymph % (Auto) [place] % (Auto) Eos % (Auto) Baso % (Auto) Lymph # (Auto) [place] # (Auto) Eos # (Auto) Baso # (Auto) Abs Immat Gran (auto) Absolute Neuts (auto) Absolute Nucleated RBC Nucleated RBC % (auto) PT (10.9-12.4) SEC INR (0.9-1.1) APTT (26.7-34.1) SEC Sodium (135-145) mmol/L Potassium (3.3-5.1) mmol/L Chloride (96-108) mmol/L Carbon Dioxide (22-29) mmol/L Anion Gap (12-20) BUN (9-16) mg/dL Creatinine (0.5-1.4) mg/dL Estim Creat Clear Calc Estimated GFR Random Glucose (60-115) mg/dL Calcium (8.4-10.2) mg/dL Total Bilirubin (0.0-1.0) mg/dL AST (5-31) U/L ALT (0-31) U/L Alkaline Phosphatase (39-117) U/L NT-Pro-B Natriuret Pep (<300) pg/mL Total Protein (6.5-8.0) g/dL Albumin (3.5-5.0) g/dL 03/08/25 03/08/25 03/08/25 Range/Units 14:39 14:39 14:39 WBC RBC Hgb Hct MCV MCH MCHC RDW Plt Count MPV Immature Gran % (Auto) Neut % (Auto) 57.7 Lymph % (Auto) Cancelled 30.8 [place] % (Auto) Cancelled 9.3 Eos % (Auto) Cancelled Baso % (Auto) Lymph # (Auto) [place] # (Auto) Eos # (Auto) Baso # (Auto) Abs Immat Gran (auto) Absolute Neuts (auto) Absolute Nucleated RBC Nucleated RBC % (auto) PT (10.9-12.4) SEC INR (0.9-1.1) APTT (26.7-34.1) SEC Sodium (135-145) mmol/L Potassium (3.3-5.1) mmol/L Chloride (96-108) mmol/L Carbon Dioxide (22-29) mmol/L Anion Gap (12-20) BUN (9-16) mg/dL Creatinine (0.5-1.4) mg/dL Estim Creat Clear Calc Estimated GFR Random Glucose (60-115) mg/dL Calcium (8.4-10.2) mg/dL Total Bilirubin (0.0-1.0) mg/dL AST (5-31) U/L ALT (0-31) U/L Alkaline Phosphatase (39-117) U/L NT-Pro-B Natriuret Pep (<300) pg/mL Total Protein (6.5-8.0) g/dL Albumin (3.5-5.0) g/dL 03/08/25 03/08/25 03/08/25 Range/Units 14:39 14:39 14:39 WBC RBC Hgb Hct MCV MCH MCHC RDW Plt Count MPV Immature Gran % (Auto) Neut % (Auto) Lymph % (Auto) [place] % (Auto) Eos % (Auto) 1.7 Baso % (Auto) Cancelled 0.4 Lymph # (Auto) Cancelled 2.4 [place] # (Auto) Cancelled Eos # (Auto) Baso # (Auto) Abs Immat Gran (auto) Absolute Neuts (auto) Absolute Nucleated RBC Nucleated RBC % (auto) PT (10.9-12.4) SEC INR (0.9-1.1) APTT (26.7-34.1) SEC Sodium (135-145) mmol/L Potassium (3.3-5.1) mmol/L Chloride (96-108) mmol/L Carbon Dioxide (22-29) mmol/L Anion Gap (12-20) BUN (9-16) mg/dL Creatinine (0.5-1.4) mg/dL Estim Creat Clear Calc Estimated GFR Random Glucose (60-115) mg/dL Calcium (8.4-10.2) mg/dL Total Bilirubin (0.0-1.0) mg/dL AST (5-31) U/L ALT (0-31) U/L Alkaline Phosphatase (39-117) U/L NT-Pro-B Natriuret Pep (<300) pg/mL Total Protein (6.5-8.0) g/dL Albumin (3.5-5.0) g/dL 03/08/25 03/08/25 03/08/25 Range/Units 14:39 14:39 14:39 WBC RBC Hgb Hct MCV MCH MCHC RDW Plt Count MPV Immature Gran % (Auto) Neut % (Auto) Lymph % (Auto) [place] % (Auto) Eos % (Auto) Baso % (Auto) Lymph # (Auto) [place] # (Auto) 0.7 Eos # (Auto) Cancelled 0.1 Baso # (Auto) Cancelled 0.0 Abs Immat Gran (auto) Cancelled Absolute Neuts (auto) Absolute Nucleated RBC Nucleated RBC % (auto) PT (10.9-12.4) SEC INR (0.9-1.1) APTT (26.7-34.1) SEC Sodium (135-145) mmol/L Potassium (3.3-5.1) mmol/L Chloride (96-108) mmol/L Carbon Dioxide (22-29) mmol/L Anion Gap (12-20) BUN (9-16) mg/dL Creatinine (0.5-1.4) mg/dL Estim Creat Clear Calc Estimated GFR Random Glucose (60-115) mg/dL Calcium (8.4-10.2) mg/dL Total Bilirubin (0.0-1.0) mg/dL AST (5-31) U/L ALT (0-31) U/L Alkaline Phosphatase (39-117) U/L NT-Pro-B Natriuret Pep (<300) pg/mL Total Protein (6.5-8.0) g/dL Albumin (3.5-5.0) g/dL 03/08/25 03/08/25 03/08/25 Range/Units 14:39 14:39 14:39 WBC RBC Hgb Hct MCV MCH MCHC RDW Plt Count MPV Immature Gran % (Auto) Neut % (Auto) Lymph % (Auto) [place] % (Auto) Eos % (Auto) Baso % (Auto) Lymph # (Auto) [place] # (Auto) Eos # (Auto) Baso # (Auto) Abs Immat Gran (auto) 0.01 Absolute Neuts (auto) Cancelled 4.4 Absolute Nucleated RBC Cancelled 0.000 Nucleated RBC % (auto) Cancelled PT (10.9-12.4) SEC INR (0.9-1.1) APTT (26.7-34.1) SEC Sodium (135-145) mmol/L Potassium (3.3-5.1) mmol/L Chloride (96-108) mmol/L Carbon Dioxide (22-29) mmol/L Anion Gap (12-20) BUN (9-16) mg/dL Creatinine (0.5-1.4) mg/dL Estim Creat Clear Calc Estimated GFR Random Glucose (60-115) mg/dL Calcium (8.4-10.2) mg/dL Total Bilirubin (0.0-1.0) mg/dL AST (5-31) U/L ALT (0-31) U/L Alkaline Phosphatase (39-117) U/L NT-Pro-B Natriuret Pep (<300) pg/mL Total Protein (6.5-8.0) g/dL Albumin (3.5-5.0) g/dL 03/08/25 03/08/25 03/08/25 Range/Units 14:39 14:39 14:39 WBC RBC Hgb Hct MCV MCH MCHC RDW Plt Count MPV Immature Gran % (Auto) Neut % (Auto) Lymph % (Auto) [place] % (Auto) Eos % (Auto) Baso % (Auto) Lymph # (Auto) [place] # (Auto) Eos # (Auto) Baso # (Auto) Abs Immat Gran (auto) Absolute Neuts (auto) Absolute Nucleated RBC Nucleated RBC % (auto) 0.0 PT 11.3 (10.9-12.4) SEC INR 1.0 (0.9-1.1) APTT 24.4 L (26.7-34.1) SEC Sodium 140 (135-145) mmol/L Potassium 4.6 (3.3-5.1) mmol/L Chloride 104 (96-108) mmol/L Carbon Dioxide 32 H (22-29) mmol/L Anion Gap 9 L (12-20) BUN 17 H 17 H (9-16) mg/dL Creatinine 0.88 0.84 (0.5-1.4) mg/dL Estim Creat Clear Calc 78.0 Estimated GFR Random Glucose (60-115) mg/dL Calcium (8.4-10.2) mg/dL Total Bilirubin (0.0-1.0) mg/dL AST (5-31) U/L ALT (0-31) U/L Alkaline Phosphatase (39-117) U/L NT-Pro-B Natriuret Pep (<300) pg/mL Total Protein (6.5-8.0) g/dL Albumin (3.5-5.0) g/dL 03/08/25 03/08/25 Range/Units 14:39 14:39 WBC RBC Hgb Hct MCV MCH MCHC RDW Plt Count MPV Immature Gran % (Auto) Neut % (Auto) Lymph % (Auto) [place] % (Auto) Eos % (Auto) Baso % (Auto) Lymph # (Auto) [place] # (Auto) Eos # (Auto) Baso # (Auto) Abs Immat Gran (auto) Absolute Neuts (auto) Absolute Nucleated RBC Nucleated RBC % (auto) PT (10.9-12.4) SEC INR (0.9-1.1) APTT (26.7-34.1) SEC Sodium (135-145) mmol/L Potassium (3.3-5.1) mmol/L Chloride (96-108) mmol/L Carbon Dioxide (22-29) mmol/L Anion Gap (12-20) BUN (9-16) mg/dL Creatinine (0.5-1.4) mg/dL Estim Creat Clear Calc 81.8 Estimated GFR > 60 > 60 Random Glucose 132 H (60-115) mg/dL Calcium 9.7 (8.4-10.2) mg/dL Total Bilirubin 0.2 (0.0-1.0) mg/dL AST 21 (5-31) U/L ALT 17 (0-31) U/L Alkaline Phosphatase 107 (39-117) U/L NT-Pro-B Natriuret Pep 547.3 H (<300) pg/mL Total Protein 7.4 (6.5-8.0) g/dL Albumin 4.2 (3.5-5.0) g/dL Independent Interpretation I performed an independent interpretation of an: EKG Interpretation: Rate: Rhythm: [place]: Normal P waves. Normal WAQAS. Normal QRS complex. ST T wave : qTC: prior studies: The study has been interpreted contemporaneously by me. . Discharge Plan Discharge Clinical Impression: Status post aortic valve replacement with bioprosthetic valve Patient Disposition: Home, Self-Care Instructions: Levetiracetam (By mouth), Apixaban (By mouth) Additional Instructions: At this time we are going to start him on Eliquis please follow-up with dredge or barge shore hand Remember any bleeding from rectum or nose is not normal and he need to be evaluated If you fall and hit your head and need to be evaluated stop your phenytoin You are going to start Keppra there are minimal side effects but it might need to be titrated up please follow up with your doctor Return for any worsening symptoms or concerns Prescriptions: New Eliquis 5 mg tablet 5 mg PO BID Qty: 60 2RF levetiracetam [Keppra] 500 mg tablet 500 mg PO BID Qty: 60 3RF No Action metoprolol tartrate 50 mg tablet 50 mg PO BID Qty: 180 3RF rosuvastatin 40 mg tablet 40 mg PO DAILY Qty: 90 2RF folic acid 1 mg tablet 1 mg PO DAILY Qty: 90 1RF amlodipine 10 mg tablet 10 mg PO DAILY 90 Days Qty: 90 1RF cholecalciferol (vitamin D3) 25 mcg (1,000 unit) capsule 25 mcg PO DAILY 90 Days Qty: 90 1RF ezetimibe 10 mg tablet 10 mg PO DAILY 90 Days Qty: 90 3RF phenytoin sodium extended 100 mg capsule 400 mg PO DAILY 90 Days Qty: 360 3RF niacin 500 mg tablet extended release 24 hr 500 mg PO DAILY Qty: 90 1RF omega-3 acid ethyl esters [Lovaza] 1 gram capsule 1 cap PO DAILY 90 Days Qty: 90 0RF warfarin 5 mg tablet 5 mg PO DAILY Qty: 60 3RF aspirin [Adult Low Dose Aspirin] 81 mg tablet,delayed release (DR/EC) 81 mg PO DAILY furosemide 40 mg tablet 40 mg PO .twice a week 90 Days Qty: 24 2RF (DME) foot brace right large See Rx Instructions .Route .MEDSUPPLY Qty: 1 0RF Rx Instructions: As directed Print Language: [place]
[2025-03-08 14:46] LABS: Hematocrit 44.2 % (37.0-47.0); Hemoglobin 14.2 g/dl (12.0-16.0); Mean Corpuscular HGB Conc 32.1 g/dl (31.0-35.0); Mean Corpuscular Hemoglobin 29.2 pg (27.0-33.0); Mean Corpuscular Volume 90.9 fL (80.0-98.0); NRBC Abs Auto 0.000 X10*3/uL (0.0-0.012); NRBC Pct Auto 0.0 /100WBC (0.0-0.2); Platelet Count 147 X10*3/uL (160-400); Red Blood Count 4.86 X10*6/uL (4.20-5.50); White Blood Count 7.8 X10*3/uL (4.8-10.8)
[2025-03-08 14:52] LABS: INTERNATIONAL NORM RATIO 1.0 (0.9-1.1); MANUAL DIFF FLAG NO; Prothrombin Time 11.3 SEC (10.9-12.4)
[2025-03-08 14:55] LABS: Partial Thromboplastin Time 24.4 SEC (26.7-34.1)
[2025-03-08 14:57] LABS: Blood Urea Nitrogen 17 mg/dL (9-16); Creatinine Clr Calc Pharmacy 81.8; Estimated Glomerular Filt Rate > 60
[2025-03-08 14:58] LABS: Imm Gran Abs Auto 0.01 X10*3/uL (0.00-0.03); Imm Gran Pct Auto 0.1 % (0.0-0.4); Lymphocytes Absolute Auto 2.4 X10*3/uL (1.2-4.9)
[2025-03-08 14:59] LABS: Alanine Aminotransferase 17 U/L (0-31); Albumin Level 4.2 g/dL (3.5-5.0); Alkaline Phosphatase 107 U/L (39-117); Anion Gap 9 (12-20); Aspartate Amino Transferase 21 U/L (5-31); Blood Urea Nitrogen 17 mg/dL (9-16); Calcium 9.7 mg/dL (8.4-10.2); Carbon Dioxide 32 mmol/L (22-29); Chloride 104 mmol/L (96-108); Creatinine Clr Calc Pharmacy 78.0; Estimated Glomerular Filt Rate > 60; Potassium 4.6 mmol/L (3.3-5.1); Sodium 140 mmol/L (135-145); Total Protein 7.4 g/dL (6.5-8.0)
[2025-03-08 15:04] LABS: NT Pro B Type Natriuretic Pept 547.3 pg/mL (<300)
--- NOTE | 2025-03-08 15:30 | PM.CNCAR ---
History of Present Illness History of Present Illness Date of Service: 03/08/25 Requesting physician: Elizabeth Hutchinson Chief complaint: Subclinical valve thrombosis Narrative: Pleasant 69 year female with background history of CABG and bioprosthetic aortic valve replacement in 2015 with recent degeneration of aortic valve and severe bioprosthetic aortic valve stenosis status post transcatheter aortic valve replacement in January. She had a good course postprocedure and was doing fine. She is still had some dyspnea with activities and was undergoing cardiac rehabilitation. She had echocardiography performed at 1 month which showed EF 48% with mild left ventricular dilatation and abnormally functioning prosthetic valve with a mean gradient of 56 and mean of 35. Her post TAVR echo showed mean gradient of 9 and gradient was 16 mm Hg next day. She has been on baby aspirin. She was advised to come to the emergency department for further assessment. She has been going to cardiac rehab and apparently has been quite stable. No bleeding issues. [facility] Past Medical History Medical History Dysuria Other and unspecified hyperlipidemia PAF (paroxysmal atrial fibrillation) Atherosclerotic cardiovascular disease Cellulitis Constipation by delayed colonic transit Seizure Impaired glucose tolerance Pure hypercholesterolemia Essential hypertension History of stroke Family History Family History Father Cancer Mother CVD (cardiovascular disease) Paternal Aunt Hypertension Paternal Uncle Hypertension Surgical History Surgical History S/P TAVR (transcatheter aortic valve replacement) Status post coronary artery bypass graft Status post aortic valve replacement with bioprosthetic valve S/P AVR (aortic valve replacement) History of partial hysterectomy Social History Social History Housing: House Alcohol intake: never Patient Tobacco Use Status: Former Tobacco user Tobacco use type: Cigarette e-Cigarette/Vaping Use: Never Used Second Hand Smoke Exposure: No Advance Directives: Yes Advance Directives Information Provided: Yes Advance Directives on File: No service: No Current occupational status: unemployed Cognitive needs: No Hearing needs: No Vision needs: Yes Meds Allergies Allergy/AdvReac Type Severity Reaction Status Date / Time No Known Allergies Allergy Verified 03/08/25 14:10 Home Medications ?Medication ?Instructions ?Recorded ?Confirmed ?Last Taken ?Type aspirin 81 mg tablet,delayed 81 mg PO DAILY 02/11/20 02/10/25 Unknown History release (Adult Low Dose Aspirin) Physical Exam Vital Signs: Vital Signs: Last Vital Signs Temp 98.4 F 03/08/25 14:08 Pulse 80 03/08/25 14:08 Resp 16 03/08/25 14:08 BP 151/77 H 03/08/25 14:08 Pulse Ox 92 03/08/25 14:08 O2 Del Method Room Air 03/08/25 14:08 BMI result Body Mass Index 43.4 GENERAL APPEARANCE: in no acute distress, obese. NECK: no carotid bruit, no jugular venous distention. SKIN: no suspicious lesions, warm and dry. HEART: Systolic murmur aortic area, regular rate and rhythm. LUNGS: clear to auscultation bilaterally. ABDOMEN: soft, nontender. EXTREMITIES: 1+ edema. PERIPHERAL PULSES: equal. NEUROLOGIC: No gross deficits, AAO X 3 Objective Labs and Meds 03/08/25 14:39 03/08/25 14:39 Lab results: Laboratory Results - last 24 hr 03/08/25 03/08/25 03/08/25 14:39 14:39 14:39 WBC Cancelled 7.8 RBC Cancelled 4.86 Hgb Cancelled Hct MCV MCH MCHC RDW Plt Count MPV Immature Gran % (Auto) Neut % (Auto) Lymph % (Auto) [place] % (Auto) Eos % (Auto) Baso % (Auto) Lymph # (Auto) [place] # (Auto) Eos # (Auto) Baso # (Auto) Abs Immat Gran (auto) Absolute Neuts (auto) Absolute Nucleated RBC Nucleated RBC % (auto) PT INR APTT Sodium Potassium Chloride Carbon Dioxide Anion Gap BUN Creatinine Estim Creat Clear Calc Estimated GFR Random Glucose Calcium Total Bilirubin AST ALT Alkaline Phosphatase NT-Pro-B Natriuret Pep Total Protein Albumin 03/08/25 03/08/25 03/08/25 14:39 14:39 14:39 WBC RBC Hgb 14.2 Hct Cancelled 44.2 MCV Cancelled 90.9 MCH Cancelled MCHC RDW Plt Count MPV Immature Gran % (Auto) Neut % (Auto) Lymph % (Auto) [place] % (Auto) Eos % (Auto) Baso % (Auto) Lymph # (Auto) [place] # (Auto) Eos # (Auto) Baso # (Auto) Abs Immat Gran (auto) Absolute Neuts (auto) Absolute Nucleated RBC Nucleated RBC % (auto) PT INR APTT Sodium Potassium Chloride Carbon Dioxide Anion Gap BUN Creatinine Estim Creat Clear Calc Estimated GFR Random Glucose Calcium Total Bilirubin AST ALT Alkaline Phosphatase NT-Pro-B Natriuret Pep Total Protein Albumin 03/08/25 03/08/25 03/08/25 14:39 14:39 14:39 WBC RBC Hgb Hct MCV MCH 29.2 MCHC Cancelled 32.1 RDW Cancelled 14.2 Plt Count Cancelled MPV Immature Gran % (Auto) Neut % (Auto) Lymph % (Auto) [place] % (Auto) Eos % (Auto) Baso % (Auto) Lymph # (Auto) [place] # (Auto) Eos # (Auto) Baso # (Auto) Abs Immat Gran (auto) Absolute Neuts (auto) Absolute Nucleated RBC Nucleated RBC % (auto) PT INR APTT Sodium Potassium Chloride Carbon Dioxide Anion Gap BUN Creatinine Estim Creat Clear Calc Estimated GFR Random Glucose Calcium Total Bilirubin AST ALT Alkaline Phosphatase NT-Pro-B Natriuret Pep Total Protein Albumin 03/08/25 03/08/25 03/08/25 14:39 14:39 14:39 WBC RBC Hgb Hct MCV MCH MCHC RDW Plt Count 147 L MPV Cancelled 10.4 Immature Gran % (Auto) Cancelled 0.1 Neut % (Auto) Cancelled Lymph % (Auto) [place] % (Auto) Eos % (Auto) Baso % (Auto) Lymph # (Auto) [place] # (Auto) Eos # (Auto) Baso # (Auto) Abs Immat Gran (auto) Absolute Neuts (auto) Absolute Nucleated RBC Nucleated RBC % (auto) PT INR APTT Sodium Potassium Chloride Carbon Dioxide Anion Gap BUN Creatinine Estim Creat Clear Calc Estimated GFR Random Glucose Calcium Total Bilirubin AST ALT Alkaline Phosphatase NT-Pro-B Natriuret Pep Total Protein Albumin 03/08/25 03/08/25 03/08/25 14:39 14:39 14:39 WBC RBC Hgb Hct MCV MCH MCHC RDW Plt Count MPV Immature Gran % (Auto) Neut % (Auto) 57.7 Lymph % (Auto) Cancelled 30.8 [place] % (Auto) Cancelled 9.3 Eos % (Auto) Cancelled Baso % (Auto) Lymph # (Auto) [place] # (Auto) Eos # (Auto) Baso # (Auto) Abs Immat Gran (auto) Absolute Neuts (auto) Absolute Nucleated RBC Nucleated RBC % (auto) PT INR APTT Sodium Potassium Chloride Carbon Dioxide Anion Gap BUN Creatinine Estim Creat Clear Calc Estimated GFR Random Glucose Calcium Total Bilirubin AST ALT Alkaline Phosphatase NT-Pro-B Natriuret Pep Total Protein Albumin 03/08/25 03/08/25 03/08/25 14:39 14:39 14:39 WBC RBC Hgb Hct MCV MCH MCHC RDW Plt Count MPV Immature Gran % (Auto) Neut % (Auto) Lymph % (Auto) [place] % (Auto) Eos % (Auto) 1.7 Baso % (Auto) Cancelled 0.4 Lymph # (Auto) Cancelled 2.4 [place] # (Auto) Cancelled Eos # (Auto) Baso # (Auto) Abs Immat Gran (auto) Absolute Neuts (auto) Absolute Nucleated RBC Nucleated RBC % (auto) PT INR APTT Sodium Potassium Chloride Carbon Dioxide Anion Gap BUN Creatinine Estim Creat Clear Calc Estimated GFR Random Glucose Calcium Total Bilirubin AST ALT Alkaline Phosphatase NT-Pro-B Natriuret Pep Total Protein Albumin 03/08/25 03/08/25 03/08/25 14:39 14:39 14:39 WBC RBC Hgb Hct MCV MCH MCHC RDW Plt Count MPV Immature Gran % (Auto) Neut % (Auto) Lymph % (Auto) [place] % (Auto) Eos % (Auto) Baso % (Auto) Lymph # (Auto) [place] # (Auto) 0.7 Eos # (Auto) Cancelled 0.1 Baso # (Auto) Cancelled 0.0 Abs Immat Gran (auto) Cancelled Absolute Neuts (auto) Absolute Nucleated RBC Nucleated RBC % (auto) PT INR APTT Sodium Potassium Chloride Carbon Dioxide Anion Gap BUN Creatinine Estim Creat Clear Calc Estimated GFR Random Glucose Calcium Total Bilirubin AST ALT Alkaline Phosphatase NT-Pro-B Natriuret Pep Total Protein Albumin 03/08/25 03/08/25 03/08/25 14:39 14:39 14:39 WBC RBC Hgb Hct MCV MCH MCHC RDW Plt Count MPV Immature Gran % (Auto) Neut % (Auto) Lymph % (Auto) [place] % (Auto) Eos % (Auto) Baso % (Auto) Lymph # (Auto) [place] # (Auto) Eos # (Auto) Baso # (Auto) Abs Immat Gran (auto) 0.01 Absolute Neuts (auto) Cancelled 4.4 Absolute Nucleated RBC Cancelled 0.000 Nucleated RBC % (auto) Cancelled PT INR APTT Sodium Potassium Chloride Carbon Dioxide Anion Gap BUN Creatinine Estim Creat Clear Calc Estimated GFR Random Glucose Calcium Total Bilirubin AST ALT Alkaline Phosphatase NT-Pro-B Natriuret Pep Total Protein Albumin 03/08/25 03/08/25 03/08/25 14:39 14:39 14:39 WBC RBC Hgb Hct MCV MCH MCHC RDW Plt Count MPV Immature Gran % (Auto) Neut % (Auto) Lymph % (Auto) [place] % (Auto) Eos % (Auto) Baso % (Auto) Lymph # (Auto) [place] # (Auto) Eos # (Auto) Baso # (Auto) Abs Immat Gran (auto) Absolute Neuts (auto) Absolute Nucleated RBC Nucleated RBC % (auto) 0.0 PT 11.3 INR 1.0 APTT 24.4 L Sodium 140 Potassium 4.6 Chloride 104 Carbon Dioxide 32 H Anion Gap 9 L BUN 17 H 17 H Creatinine 0.88 0.84 Estim Creat Clear Calc 78.0 Estimated GFR Random Glucose Calcium Total Bilirubin AST ALT Alkaline Phosphatase NT-Pro-B Natriuret Pep Total Protein Albumin 03/08/25 03/08/25 14:39 14:39 WBC RBC Hgb Hct MCV MCH MCHC RDW Plt Count MPV Immature Gran % (Auto) Neut % (Auto) Lymph % (Auto) [place] % (Auto) Eos % (Auto) Baso % (Auto) Lymph # (Auto) [place] # (Auto) Eos # (Auto) Baso # (Auto) Abs Immat Gran (auto) Absolute Neuts (auto) Absolute Nucleated RBC Nucleated RBC % (auto) PT INR APTT Sodium Potassium Chloride Carbon Dioxide Anion Gap BUN Creatinine Estim Creat Clear Calc 81.8 Estimated GFR > 60 > 60 Random Glucose 132 H Calcium 9.7 Total Bilirubin 0.2 AST 21 ALT 17 Alkaline Phosphatase 107 NT-Pro-B Natriuret Pep 547.3 H Total Protein 7.4 Albumin 4.2 Assessment and Plan (1) Status post aortic valve replacement with bioprosthetic valve: Status: Acute (2) Thrombosis of aortic valve: Status: Acute Plan [age] female presenting to emergency department because her echocardiography done last week showed significantly elevated gradients across the aortic valve of 37 mm Hg. She had aortic valve replacement done 1 month ago and mean gradient after implant was 9 mm Hg and next day it was 16 mm Hg. This is concerning for subclinical aortic valve thrombosis. She clinically is stable at this point. She takes phenytoin which she has been taking since after she had a seizure post stroke. She has not had any further seizures since then. She takes 200 mg of phenytoin in the morning and 200 in the evening. I have explained to her that with phenytoin we can not do Eliquis or Xarelto and the reason for bringing her to the emergency department is that we should bridge her to Coumadin. After some discussion we have decided to stop the phenytoin and put her on Keppra. She will be started on Eliquis 5 mg twice a day. She will not fill the Coumadin scripts anymore. She will continue baby aspirin. We will repeat echocardiography in 1 month. Follow up with me in a week. Thank you for allowing me to participate in the care of your patient. Please feel free to contact me if you have any questions. Procedures Date of Service Date of Service: 03/08/25
[2025-03-08 15:46] VITALS: BP 115/60; PULSE 67; RESP 18; O2SAT 97
[2025-03-08 15:57] VITALS: BP 115/60; PULSE 67; RESP 18; TEMP 36.9; O2SAT 97
== END 2025-03-08 16:00 | disposition home or self-care (01) ==
PROVIDERS: Physician Assistant Medical; Emergency Provider Emergency Medicine; PCP Internal Medicine
DX: I35.8 Other nonrheumatic aortic valve disorders (principal); Z95.3 Presence of xenogenic heart valve; R93.1 Abnormal findings on diagnostic imaging of heart and coronary circulation; R06.02 Shortness of breath; I48.0 Paroxysmal atrial fibrillation; I27.20 Pulmonary hypertension, unspecified; Z95.1 Presence of aortocoronary bypass graft; Z79.899 Other long term (current) drug therapy; Z87.891 Personal history of nicotine dependence; Z86.73 Personal history of transient ischemic attack (TIA), and cerebral infarction without residual deficits
CPT/HCPCS: 36415; 80048; 80053; 80076; 82565; 83880; 84520; 85025; 85027; 85610; 85730; 93005; 99283

== ENCOUNTER → 2025-03-08 14:26 | Outpatient (BNV) | payer MEDICARE, BC, SELFPAY | PROVIDERS: Emergency Provider Emergency Medicine; PCP Internal Medicine; Visit Provider Internal Medicine Cardiovascular Disease | DX: I51.7 Cardiomegaly (principal) | CPT/HCPCS: 93010 ==

== ENCOUNTER 2025-03-15 09:28 | Outpatient (AMB) | payer MEDICARE, BC, SELFPAY ==
[2025-03-15 09:48] VITALS: BP 130/64; PULSE 74; BMI 42.6
--- NOTE | 2025-03-15 09:48 | A.OFFVIS_ITS ---
Vital Signs 03/15/25 09:48 Height 5 ft 6 in Weight 263 lb 10.766 oz BMI 42.6 BP 130/64 Blood Pressure Location Lt brachial Position Sitting Pulse 74 Pulse Source Monitor Intake Visit Reasons: 30 day-S/p TAVR- 01/28 Intake Note: s/[ TAVR 01/28 Print Binding Worker Required: No Accompanied by: Son Allergies No Known Allergies Allergy (Verified 03/08/25 14:10) Medication List - Last Reconciled 03/15/25 by Quang Montez MD amlodipine 10 mg PO DAILY 90 days apixaban (Eliquis) 5 mg PO BID aspirin (Adult Low Dose Aspirin) 81 mg PO DAILY cholecalciferol (vitamin D3) 25 mcg PO DAILY 90 days ezetimibe 10 mg PO DAILY 90 days folic acid 1 mg PO DAILY [foot brace right As directed] furosemide 40 mg PO .twice a week 90 days levetiracetam (Keppra) 500 mg PO BID metoprolol tartrate 50 mg PO BID niacin ER 500 mg PO DAILY omega-3 acid ethyl esters (Lovaza) 1 cap PO DAILY 90 days rosuvastatin 40 mg PO DAILY HPI Comments Details: [age] female who is here for management of aortic valve stenosis. She underwent cardiac catheterization recently because of dyspnea on exertion. She has background history of bypass surgery and had a 23 mm magna ease bioprosthetic valve done in 2016. Cardiac catheterization showed patent grafts with no significant progression in quinault coronary disease but did show mean gradient across aortic valve of 37 mm Hg and aortic valve area 1 cm2. She had a TAVR protocol CT scan done and we had a discussion about her in the heart team meeting and was decided to proceed with transcatheter aortic valve replacement. She has dyspnea with activities which is stable. She is denying any chest discomfort or dizziness. She was accompanied by her son who was involved in the discussion. The plan about transcatheter aortic valve replacement with an Evolut FX valve was discussed with the patient and the son and the potential pros and cons discussed in detail and all questions were answered. 02/10/2025: She is here for follow-up. She is status post transcatheter aortic valve replacement (valve in valve) for severe prosthetic valve stenosis. She has done well postop and was discharged the next day. She is saying that she is feeling little more energetic but continues to be short of breath. She has been quite sedentary and has not been exercising regularly. I have advised her to start doing cardiac rehabilitation and we are referring her to cardiac rehab. 03/15/2025: She is here for follow-up. She underwent transcatheter aortic valve replacement for severe prosthetic valve stenosis. She had repeat echocardiography 1 month after TAVR which is showing significantly elevated gradients across the aortic valve and mean aortic valve gradient was 37 mm Hg. Postprocedure her mean gradient was 9 mm Hg. She was brought into the emergency department and was seen on March 08 and after discussion we started her on Eliquis 5 mg twice a day. She was on phenytoin at that time which was discontinued and Keppra was substituted for that. She is denying any symptoms. She is going to cardiac rehabilitation and overall improving. COUNTS INCLUDE 234 BEDS AT THE [facility] Medical History Dysuria Other and unspecified hyperlipidemia PAF (paroxysmal atrial fibrillation) Atherosclerotic cardiovascular disease Cellulitis Constipation by delayed colonic transit Seizure Impaired glucose tolerance Pure hypercholesterolemia Essential hypertension History of stroke Surgical History S/P TAVR (transcatheter aortic valve replacement) Status post coronary artery bypass graft Status post aortic valve replacement with bioprosthetic valve S/P AVR (aortic valve replacement) History of partial hysterectomy Family History Father Cancer Mother CVD (cardiovascular disease) Paternal Aunt Hypertension Paternal Uncle Hypertension Social History Housing: House Alcohol intake: never Patient Tobacco Use Status: Former Tobacco user Tobacco use type: Cigarette e-Cigarette/Vaping Use: Never Used Second Hand Smoke Exposure: No service: No Current occupational status: unemployed Cognitive needs: No Hearing needs: No Vision needs: Yes Review of Systems Const Denies chills, Denies fatigue, Denies fever(s), Denies frequent falls, Denies weakness, Denies weight gain and Denies weight loss ENT Denies dizziness Card Denies chest pain, Denies leg edema, Denies lightheadedness, Denies palpitations, Denies dyspnea and Denies dyspnea on exertion Resp Denies cough, Denies dyspnea and Denies dyspnea on exertion GI Denies hematochezia Musc Denies abnormal gait, Denies muscle weakness, Denies numbness, Denies radiating pain into limb and Denies tingling Neuro Denies abnormal gait, Denies dizziness, Denies frequent falls, Denies numbness, Denies tingling and Denies weakness Endo Denies fatigue and Denies palpitations Physical Exam Vital Signs: Last Vital Signs Pulse 74 03/15/25 09:48 BP 130/64 03/15/25 09:48 BMI result Body Mass Index 42.6 GENERAL APPEARANCE: in no acute distress, obese. NECK: no carotid bruit, no jugular venous distention. SKIN: no suspicious lesions, warm and dry. HEART: Systolic murmur aortic area, regular rate and rhythm. LUNGS: clear to auscultation bilaterally. ABDOMEN: soft, nontender. EXTREMITIES: 1+ edema. PERIPHERAL PULSES: equal. NEUROLOGIC: No gross deficits, AAO X 3 Office Procedures EKG Details: Sinus rhythm 74 beats per minute, normal axis, inferior and lateral T-wave inversions-consider ischemia versus left ventricular hypertrophy, anteroseptal infarct, QTC 426 milliseconds. [id number], Complete Assessment & Plan Assessment & Plan (1) Essential hypertension: Code(s): I10 - Essential (primary) hypertension Category: Medical (2) Thrombosis of aortic valve: Code(s): I35.8 - Other nonrheumatic aortic valve disorders Category: Medical (3) S/P TAVR (transcatheter aortic valve replacement): Code(s): Z95.2 - Presence of prosthetic heart valve Category: Medical Plan Pleasant 69 year female who has background history of coronary artery bypass surgery and bioprosthetic aortic valve replacement with a 23 mm magna ease in 2016. More recently had an episode of shortness of breath which was thought to be congestive heart failure and she was referred to us for diagnostic left and right heart catheterization where severe bioprosthetic aortic valve stenosis was noted. She subsequently underwent transcatheter aortic valve replacement with a 26 mm Evolut FX + valve with cerebral embolic protection. Her echo gradient was 9 mm Hg postprocedure but more recently echocardiography has shown mean gradient of 37 mm Hg. She is denying any clinical symptoms. Clinical story is quite concerning for subclinical prosthetic valve thrombosis. After discussion she was taken off the phenytoin and Keppra was started and she was started on Eliquis. Phenytoin and Eliquis can not be taken together due to interaction. She has been tolerating the apixaban so far. She will continue the baby aspirin for now. Blood pressure well controlled. We will repeat echocardiography next month to assess the prosthetic valve function. Hopefully with the gradients will improve with anticoagulation. Thank you for allowing me to participate in the care of your patient. Please feel free to contact me if you have any questions. Orders: Orders Complete Blood Count Auto Diff 03/08/25 Z95.2 - Presence of prosthetic heart valve CA echo transthoracic complete 03/01/25 Z95.2 - Presence of prosthetic heart valve Basic Metabolic Panel 03/08/25 Z95.2 - Presence of prosthetic heart valve Coding Level of Care Code Est Pt Level 5 (17298) Diagnoses Essential hypertension I10 Thrombosis of aortic valve I35.8 S/P TAVR (transcatheter aortic valve replacement) Z95.2 CPT Codes EKG - CPT: 32393-[id number], Complete ([id number])
--- OUTSIDE RECORDS SUMMARY | 2025-03-15 10:34 | XMS_ITS | Clinical Summary ---
Author Organization [facility] Address [address] [place] [address] Care Team Providers Care Food Beverage Supervisor Name Role Phone Unavailable Primary Care Provider [...] to complete [place] [id number] [facility]
== END 2025-03-15 10:32 | disposition home or self-care (01) ==
LOC: HO.HCS 09:29
PROVIDERS: PCP Internal Medicine; Visit Provider Internal Medicine Cardiovascular Disease
DX: I10 Essential (primary) hypertension (principal); I35.8 Other nonrheumatic aortic valve disorders; Z95.2 Presence of prosthetic heart valve; Z95.1 Presence of aortocoronary bypass graft; R94.31 Abnormal electrocardiogram [ECG] [EKG]
CPT/HCPCS: 93010; 99214

== ENCOUNTER → 2025-03-15 09:28 | Outpatient (BNVA) | payer MEDICARE, BC, SELFPAY | PROVIDERS: PCP Internal Medicine; Visit Provider Internal Medicine Cardiovascular Disease | DX: I10 Essential (primary) hypertension (principal); Z95.2 Presence of prosthetic heart valve; I35.8 Other nonrheumatic aortic valve disorders | CPT/HCPCS: 93005; 99212 ==

== ENCOUNTER 2025-03-17 11:41 | Outpatient (REF) | payer MEDICARE, BC, SELFPAY ==
[2025-03-17 12:55] LABS: Anion Gap 14 (12-20); Blood Urea Nitrogen 19 mg/dL (9-16); Calcium 10.0 mg/dL (8.4-10.2); Carbon Dioxide 29 mmol/L (22-29); Chloride 104 mmol/L (96-108); Estimated Glomerular Filt Rate > 60; Potassium 4.1 mmol/L (3.3-5.1); Sodium 143 mmol/L (135-145)
--- OUTSIDE RECORDS SUMMARY | 2025-03-17 14:37 | XMS_ITS | Clinical Summary ---
Author Organization [facility] Address [address] [place] [address] Care Team Providers Care Chief Juvenile Probation Officer Name Role Phone Unavailable Primary Care [...] to [place] [id number] [facility]
== END 2025-03-17 11:42 | disposition home or self-care (01) ==
LOC: HO.LAB 11:41
PROVIDERS: PCP Internal Medicine; Visit Provider Internal Medicine Cardiovascular Disease
DX: T82.857A Stenosis of other cardiac prosthetic devices, implants and grafts, initial encounter (principal); Z95.2 Presence of prosthetic heart valve
CPT/HCPCS: 36415; 80048; 87040

== ENCOUNTER → 2025-04-15 12:43 | Outpatient (REF) | payer MEDICARE, BC, SELFPAY ==
--- NOTE | 2025-04-15 12:47 | CA_ITS ---
Transthoracic Echocardiogram Patient (Last, First, Middle): Sonia Mora F Gender: Female Date of : 1955 Age: 69 Procedure Date: 04/15/2025 Procedure Type: Transthoracic Echocardiogram Location: OP Height: 167. cm Weight: 119.3 kg BSA: 2.24 m2 Heart Rate: 70 bpm BP: 155 / 75 mmHg Arcade Game Technician: DIEGO Heller MD: Quang Montez MD Car Top Bolter: Jonathan Trejo MD Symptoms: I35.8 - Other nonrheumatic aortic valve disorders Study Quality: Adequate ECG Rhythm: Sinus arrhythmia Conclusions: - 1. Low normal LV ejection fraction of 50-55% with underlying regional wall motion abnormality consistent with coronary artery disease with impaired relaxation filling pattern 2. Bioprosthetic aortic valve place with mean gradient of 16 mm of Hg, much improved compared to prior study suggestive of intervening intervention with a reversible cause such as valve thrombosis 3. Normal RV systolic pressure 4. No gross pericardial effusion Findings Left Ventricle Normal left ventricular cavity size. There is normal left ventricular wall thickness. The left ventricular systolic function is low normal. The visually estimated ejection fraction is between 50-55%. Spectral Doppler is indicative of an impaired relaxation filling pattern. E/E prime ratio is between 8 and 15 consistent with indeterminate filling pressures. Wall Motion Rest Echo Findings The mid inferior, apical septum, and basal inferolateral segments are hypokinetic. The inferoseptal wall and basal inferior segment are akinetic. All other scored wall segments showed normal motion. Right Ventricle Normal right ventricular cavity size and systolic function. Atria The left atrium is likely dilated. Interatrial shunt cannot be excluded. The right atrium is likely dilated. Aortic Valve A bioprosthetic aortic valve is present. mean gradient across aortic valve with 16 mm Hg, this is still mildly elevated for bioprosthetic aortic valve but much improved compared to prior study at 35 mm Hg. Mild stenosis can not be entirely ruled out Mitral Valve There is mild anterior and posterior mitral leaflet thickening. The posterior mitral leaflet has restricted mobility. There is trace mitral valve regurgitation. There is no mitral valve stenosis. Pulmonic Valve The pulmonic valve was not well visualized. Tricuspid Valve Likely normal tricuspid valve structure and function. There is trace tricuspid valve regurgitation. The right ventricular systolic pressure is normal. The right ventricular systolic pressure is 15 mmHg. Normal right atrial pressure. There is no evidence of pulmonary hypertension. Great Vessels All visible segments of the aorta are normal in size. The pulmonary artery was not well visualized. There is no dilatation of the ascending aorta measuring 2.90 cm. Venous The inferior vena cava is normal in size and collapses greater than 50% with inspiration. Pericardium/Pleural There is no evidence of pericardial effusion. Prior Study Comparison Changes noted compared to prior study dated: 03/01/2025. significant improvement in mean gradient across aortic valve, could represent reversible causes such as improvement in valve thrombosis Measurements 2D Linear Measurements IVSd: 1.17 0.6-0.9/0.6-1.0 cm LVIDd: 5.69 3.9-5.3/4.2-5.9 cm LVIDd Index: 2.54 2.4-3.2/2.2-3.1 cm/m2 LVIDs: 3.69 2.0-3.6 cm LVPWd: 0.97 0.7-1.1 cm LA Diam: 5.00 2.7-3.8/3.0-4.0 cm LAIDs Index: 2.23 1.5-2.3 cm/m2 LV Mass: 307.47 67-162/88-224 g LV Mass Index: 137.26 43-95/49-115 g/m2 LVOT Diam: 2.00 3.0+(-)1.3 cm 2D Systolic Function EF 4C: 50.40 >55% EF 2C: 56.30 >55% EF BiP: 53.10 >55% Mitral Valve MV Pk E: 1.19 MV PK A: 1.49 MV Decel Time: 257.00 E/A: 0.80 E'Lateral: 8.38 E'Medial: 5.55 E/E' Med: 21.40 E/E' Lat: 14.20 PHT: 75.00 MVA PHT: 2.93 Decel Hancock: 4.61 Aortic Valve AoV Pk Massimo: 2.70 AoV Mn Massimo: 1.88 AoV VTI: 0.68 AoV Pk Grad: 29.00 Aov Mn Grad: 16.00 KENDELL Cont.VTI: 1.76 LVOT LVOT Pk Massimo: 1.51 LVOT Mn Massimo: 1.14 LVOT VTI: 0.38 LVOT Pk Grad: 9.00 LVOT Mn Grad: 6.00 LVOT Diam: 2.00 LVOT Area: 3.14 Diastolic Function MV Pk E: 1.19 MV Pk A: 1.49 E/A: 0.80 E'Medial: 5.55 E/E' Med: 21.40 E' Laterial: 8.38 E/E' Lat: 14.20 Right Ventricle TAPSE (mm): 22.10 TVS' Massimo: 10.30 Tricuspid Valve TR Pk Massimo: 1.72 TR Pk Grad: 12.00 RA Press: 3.00 RVSP: 15.00 Great Vessels Aorta Sinus of Valsalva: 3.10 2.0-3.5 cm Ao Asc: 2.90 2.1-3.4 cm Pulmonary Veins Pulm Vein S/D 1.20 Pulmonary Valve PV Pk Massimo: 1.18 Peak PV Grad: 6.00 Updated in Other Vendor System with Status of Final Jonathan Trejo MD electronically signed on 04/16/2025 4:39:55 PM with status of Final
== END ==
LOC: HO.CARD 12:43
PROVIDERS: PCP Internal Medicine; Visit Provider Internal Medicine Cardiovascular Disease
DX: I35.8 Other nonrheumatic aortic valve disorders (principal)
CPT/HCPCS: 93306

== ENCOUNTER → 2025-04-15 12:47 | Outpatient (BNV) | payer MEDICARE, BC, SELFPAY | PROVIDERS: PCP Internal Medicine; Visit Provider Internal Medicine Cardiovascular Disease | DX: I35.8 Other nonrheumatic aortic valve disorders (principal); Z95.2 Presence of prosthetic heart valve | CPT/HCPCS: 93306 ==